=== PATIENT | female | born 1985 | race Caucasian/White ===

== ENCOUNTER 2016-11-16 11:42 | Emergency (ER) | payer OTHER, SELFPAY ==
[~2016-11-16 11:42] MED LIST: ABIL5TAB5 PO; EFFE150C PO; KLON0.5T PO; KLON1TAB PO; NAPR500T2 PO; OXYC-517 PO; PRIL20CA9 PO; PROP40TA PO; TOPA100T8 PO; TOPA25TA10 PO; TRAZ50TA4 PO; VENL1TAB35 PO; VENL225T PO; VENL37.598 PO; VENL75CA PO; VENL75CA47 PO
[2016-11-16 12:23] LABS: MEAN CORPUSCULAR HEMOGLOBIN 29.9 pg (27.0-33.0); MEAN CORPUSCULAR HGB CONC 33.9 g/dl (32.0-36.5); MEAN CORPUSCULAR VOLUME 88.3 fl (80.0-96.0); RED CELL DISTRIBUTION WIDTH 13.9 % (11.5-14.5)
[2016-11-16 12:32] LABS: CONTROL LINE HCG INT CTR LINE PRESENT
[2016-11-16 12:47] LABS: ALBUMIN 3.7 GM/DL (3.2-5.2); ALBUMIN/GLOBULIN RATIO 1.09 (1.00-1.93); ALKALINE PHOSPHATASE 75 U/L (45-117); ALT/SGPT 22 U/L (12-78); ANION GAP 11 MEQ/L (8-16); AST/SGOT 26 U/L (15-37); BILIRUBIN,DIRECT < 0.1 MG/DL (0.0-0.2); BILIRUBIN,TOTAL 0.4 MG/DL (0.2-1.0); BLOOD UREA NITROGEN 8 MG/DL (7-18); CALCIUM LEVEL 8.7 MG/DL (8.5-10.1); CARBON DIOXIDE LEVEL 25 MEQ/L (21-32); CHLORIDE LEVEL 105 MEQ/L (98-107); CREATININE FOR GFR 0.68 MG/DL (0.55-1.02); GLOMERULAR FILTRATION RATE > 60.0 (>60); GLUCOSE, FASTING 89 MG/DL (70-105); SODIUM LEVEL 141 MEQ/L (136-145); TOTAL PROTEIN 7.1 GM/DL (6.4-8.2)
[2016-11-16 13:31] LABS: AMPHETAMINES LEVEL URINE NEGATIVE (NEGATIVE); BENZODIAZEPINES URINE NEGATIVE (NEGATIVE); COCAINE METABOLITE URINE NEGATIVE (NEGATIVE); CONTROL LINE INT CTR LINE PRESENT; METHADONE URINE NEGATIVE (NEGATIVE); OPIATES URINE NEGATIVE (NEGATIVE); TRICYCLIC ANTIDEPRESS URINE NEGATIVE (NEGATIVE)
[2016-11-16] MEDS ORDERED: ACETAMINOPHEN TAB 650MG DOSE (2X325MG) As Ordered ONE (17:04)
--- NOTE | 2016-11-17 08:15 | ECGEPIP ---
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
--- NOTE | 2016-11-17 08:41 | EDDOCDS ---
Nurse's Notes [facility] Name: Radha Mcdowell Age: 31 yrs Sex: Female : 1985 Arrival Date: 11/16/2016 Time: 11:42 Bed OBSERVATION Private MD: Diagnosis: Major depressive disorder, recurrent;Suicidal ideations Presentation: 11/16 11:54 Presenting complaint: Patient states: states depressed x 1 week - has been thinking bc about cutting self. has not acted on plan. denies self - injury. denies HI. denies recent ETOH/street drug use. denies hallucinations. states has not taken any meds since September. Mental Health Triage Level: Level 2: The patient displays active suicidal ideations. The patient was brought to the ED for evaluation because of a legal pickup order. Adult Sepsis Screening: The patient does not have new or worsening altered mentation. Patient's respiratory rate is less than 22. Systolic blood pressure is greater than 100. Patient has a qSOFA score of 0- Negative Sepsis Screen. Suicide/Homicide risk assessment- The patient admits to and/or has been reported to be having suicidal ideations. The patient reports that he/she has not been admitted to an inpatient mental health facility in the last 30 days. The patient reports that he/she does not have a recent or current history of substance abuse. The patient reports that he/she has a prior history of suicide attempt and/or organized plan. The patient reports that he/she has not experienced a significant life altering event in the last 30 days. The patient reports that he/she has adequate social support. The patient reports he/she has significant chronic medical condition(s). Status: Patient is not a telephone order clerk room service or dependent. Transition of care: patient was not received from another setting of care. 11:54 Acuity: JASON Level 3 bcj 11:54 Method Of Arrival: Police Car bcj Triage Assessment: 12:00 General: Appears in no apparent distress, comfortable, Behavior is cooperative. Pain: bcj Denies pain. HIV screening NA for this visit Offered previously. Neurological: Level of Consciousness is awake, alert. 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 none - PSHx: Cholecystectomy (February 14, 2016); right acl reconstruction; - Social history: Smoking status: Patient states was never smoker of tobacco. No barriers to communication noted, The patient speaks fluent Kittitian. - Family history: Not pertinent. - : The pt / caregiver states he / she is not on anticoagulants. Home medication list is obtained from the patient. - Exposure Risk Screening:: None identified. Screenin:02 Screening information is obtained from the patient. Fall risk: No risks identified. bcj Assistance ADL's: requires no assistance with activities of daily living. Abuse/DV Screen: The patient / caregiver reports he/she is: not in a situation that causes fear, pain or injury. Nutritional screening: No deficits noted. Advance Directives: Currently, there is no health care proxy. home support is adequate. Assessment: 12:02 General: Appears in no apparent distress, comfortable, Behavior is cooperative. bcj 13:06 General: Appears in no apparent distress, comfortable, Behavior is cooperative. Pain: bcj Denies pain. Derm: Skin is pink, warm & dry. 17:51 General: Appears in no apparent distress, comfortable, Behavior is cooperative. Pain: bcj Location: head Pain currently is 5 out of 10 on a pain scale. Neurological: Level of Consciousness is awake, alert. Derm: Skin is pink, warm & dry. 19:11 General: Appears in no apparent distress, comfortable, Behavior is appropriate for age, rw1 cooperative, quiet. Pain: Denies pain. Neurological: Level of Consciousness is awake, alert, obeys commands, Oriented to person, place, time. Respiratory: Airway is patent Respiratory effort is even, unlabored. Derm: Skin is pink, warm & dry. normal. 20:10 Reassessment: Patient appears in no apparent distress at this time. resting quietly on rw1 stretcher, safety maintained will monitor.. 21:10 Reassessment: Patient appears in no apparent distress at this time. Patient denies pain rw1 at this time. resting quietly on stretcher, safety maintained will monitor.. 23:00 General: Appears in no apparent distress, comfortable, Behavior is appropriate for age, janelle cooperative. Pain: Denies pain. Neurological: Level of Consciousness is awake, alert, obeys commands, Oriented to person, place, time, Speech is normal. EENT: No deficits noted. Cardiovascular: No deficits noted. Respiratory: No deficits noted. Airway is patent Respiratory effort is even, unlabored, Respiratory pattern is regular, symmetrical. GI: No deficits noted. : No deficits noted. Derm: Skin is pink, warm & dry. 11/17 01:32 General: Appears in no apparent distress, comfortable, Behavior is resting quietly on rw1 stretcher, safety maintained. Respiratory: Airway is patent Respiratory effort is even, unlabored. Derm: Skin is pink, warm & dry. normal. 02:27 Reassessment: Patient appears in no apparent distress at this time. resting quietly on rw1 stretcher, safety maintained will monitor.. 03:27 Reassessment: Patient appears in no apparent distress at this time. resting quietly on rw1 stretcher, safety maintained will monitor.. 04:27 General: Appears in no apparent distress, comfortable, Behavior is resting quietly on rw1 stretcher, safety maintained. Respiratory: Airway is patent Respiratory effort is even, unlabored. Derm: Skin is pink, warm & dry. normal. 04:30 General: no change in general condition, no voiced complaints offered. resp easy. janelle security in attendance.. 05:28 Reassessment: Patient appears in no apparent distress at this time. resting quietly on rw1 stretcher, safety maintained will monitor.. 06:20 Reassessment: Patient appears in no apparent distress at this time. Patient denies pain rw1 at this time. resting quietly on stretcher, safety maintained will monitor.. 07:41 General: Report received from Brijesh Taylor LPN, presently asleep, scheduled for transfer [facility] to [facility] later this AM. 08:09 General: Report called to Julee Ohara RN at [facility], Awake and alert, calm dwg and cooperative, states still having ''occasional bad thoughts'' but does not elaborate. . 08:38 General: Appears in no apparent distress, comfortable, Behavior is cooperative. dwg General: Awake and alert, calm and cooperative, VSS, GEM's EMT's Sonny here to transfer to [facility].. Neurological: Level of Consciousness is awake, alert, Oriented to person, place, time. Respiratory: Airway is patent Respiratory effort is even, unlabored, Respiratory pattern is regular, symmetrical. Mental Health Eval: 11/16 16:44 Mental health consult is initiated at 16:15. Status: The patient is not a telephone order clerk room service or dependent. [facility] Behavioral Health: The patient is not an established patient of [facility] Behavioral Health. Referral Information: Evaluation referral is generated by a police agency: [employer] on . The patient was referred for evaluation because she phoned police, expressed SI & requested transport here. Subjective: The patients chief complaint is "I've been having bad thoughts, really bad thoughts". Delusions are denied. Patient's mood is depressed & hopeless. Hallucinations are denied. Patient states that she stopped attending outpatient treatment a few months ago, which is not atypical. She describes "Going in cycles", where she will attend all appointments & be compliant with her meds, only to abruptly stop everything. She says that this occurs about 2 times per year. She offers no explanation for this, denying that she either felt that treatment was not helping, or that she felt so well that she no longer needed it. She reports that this particular episode of depression has been worsening over the last 2 weeks, with thoughts of suicide for a couple of days. She says that the suicidal thoughts have intensified to the point where she believes that if being alone at home, she'd almost certainly make an attempt. She reports h/o attempts, including cutting & overdose. She was initially unable to identify any obvious stressors or triggers, however noted that she began a new job ("I hate it") a month ago, as well as planning to move from her aunt's home & into her own apartment. She concurred when it was pointed out that both are significant life changing events. At this time she is unable to guarantee her safety outside of the hospital. 16:59 Mental Health history: alcohol abuse, anxiety, depression, abusing prescription drugs. jl sleep disturbance, suicide attempt by cutting (05/2016) & overdose (10/2015) Mental Health Admissions: 05/2016, 09/2015 & 01/2015, all at [facility] Current Outpatient Mental Health Services: None. Current living environment is The patient currently lives with a family member. Patient presents to Emergency Department with the following symptoms within the past 2 weeks: anxiety, erratic appetite depressed mood, feelings of helplessness/hopelessness, non-compliance, poor concentration, sleep disturbance - erratic suicidal ideation with plan for cutting. pills. Substance abuse: Pt denies. Mental status exam: Patients appearance is alternative, Patient's behavior is cooperative, Speech is normal. Affect is restricted. Mood is depressed. Hallucinations are denied. Appetite is erratic Memory is good. Energy level is normal. Content of thought is normal. Thought process is intact. Cognitive level is oriented to person, place, time and situation Patient's insight is fair. Judgement is fair. Rapport with interviewer is good. Suicidal Ideation present with a plan to kill self by cutting. pills. Homicidal ideation is denied. 19:21 Disposition: Medically cleared for disposition by Sarai Borrero MD Psychiatric jl Consult is performed by phone with Dr Bahman Montilla MD The patient is to be transferred to an alternate facility with an available bed, as [facility] at capacity. [facility] Admission Criteria: The patient is experiencing suicidal ideation. The patient requires continuous observation and/or control to protect self, others or property. The patient's care requires a multi-modal treatment plan under close supervision and coordination due to the complexity and severity of the patient's symptoms. Legal Status: Patient's legal status will be [facility] Services admission: 9.37. DSM-V Differential Diagnosis: Major Depressive Disorder recurrent episode (F33.0) severe (F33.2). 21:30 Narrative: At this time there are no beds available for transfer. Patient to remain in ED, pending bed availability. She is aware of this plan. 22:15 Narrative: [facility] has advised that they have one bed available at this time. Chart to be faxed for review. 11/17 02:06 Narrative: EKG faxed per request. jfb 03:33 Narrative: PT is accepted to [facility]. Waiting for ETA from [facility]. 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 jfb Psych: 11/16 12:03 Mental Health Triage Level: Level 2: The patient displays active suicidal ideations. bc The patient was brought to the ED for evaluation because of a legal pickup order. Subjective: The patients chief complaint is has been thinking about hurting self x 1 week. Delusions are denied. Patient's mood is depressed, Hallucinations are denied. Objective: Patient is cooperative, Speech is soft, Affect is flat. Substance abuse: Pt denies Vital Signs: 12:00 BP 135 / 90; Pulse 85; Resp 16; Temp 99.0(O); Pulse Ox 96% on R/A; Weight 111.13 kg; bcj Height 5 ft. 3 in. (160.02 cm); Pain 0/10; 17:51 BP 127 / 64; Pulse 64; Resp 16; Temp 98(O); Pulse Ox 97% on R/A; Pain 5/10; bcj 21:10 BP 125 / 85; Pulse 70; Resp 16; Temp 96.9(O); Pulse Ox 96% on R/A; Pain 0/10; rw1 11/17 06:20 BP 121 / 76; Pulse 67; Resp 16; Temp 97.4(TE); Pulse Ox 98% on R/A; Pain 0/10; rw1 08:39 BP 134 / 74; Pulse 82; Resp 16; Temp 97.6(T); Pulse Ox 98% on R/A; dwg 11/16 12:00 Body Mass Index 43.40 (111.13 kg, 160.02 cm) [facility] Vitals: 11/16 12:00 Log In time N/A- police car arrival. [facility] ED Course: 11:45 Patient visited by Aguila Martinez. mm15 11:45 Patient moved to Waiting mm15 11:46 Patient moved to [facility] rn1 11:57 Triage Initiated bcj 12:00 Patient visited by Blair Cline. rn1 12:02 No apparent distress. Resting quietly. Awaiting ED physician evaluation. [facility] 12:02 The patient / caregiver is instructed regarding the plan of care and ED course. Patient j has correct armband on for positive identification. Placed in gown. Placed in psych safe attire. Bed in low position. Call light in reach. Security observing. 12:03 Patient visited by Reynaldo Neely RN. bcj 12:19 Patient visited by Blair Cline. rn1 12:31 Patient visited by Blair Cline. rn1 13:06 No apparent distress. Resting quietly. Awaiting ED physician evaluation. [facility] 13:06 Security observing. j 13:06 No IV's were initiated during this patient's visit. No procedures done that require bcj assistance. Labs drawn. (by ED staff). Sent per order to lab. 13:07 Patient visited by Reynaldo Neely RN. bcj 13:45 Patient visited by Jessica Black. lr2 14:01 Patient visited by Jessica Black. lr2 14:09 Sarai Borrero MD is Attending Physician. ml 14:10 Patient visited by Sarai Borrero MD. ml 14:16 Patient visited by Blair Cline. rn1 14:38 Patient visited by Blair Cline. rn1 14:57 Patient visited by Blair Cline. rn1 15:15 Patient visited by Blair Cline. rn1 15:15 Patient visited by Reynaldo Neely RN. bcj 15:19 Patient visited by Reynaldo Neely RN. bcj 15:30 Patient visited by Blair Cline. rn1 16:01 Patient visited by Blair Cline. rn1 16:09 [facility] Payment Agreement was scanned into [employer] and attached to record. zo 16:18 Patient visited by Blair Cline. rn1 16:34 Patient visited by Matt Linares PSA. jl 16:55 Patient visited by Blair Cline. rn1 17:00 Patient visited by Blair Cline. rn1 17:25 Patient visited by Blair Cline. rn1 17:34 Patient visited by Blair Cline. rn1 17:45 Patient visited by Blair Cline. rn1 17:51 No apparent distress. Resting quietly. Awaiting disposition. bcj 17:52 Patient visited by Reynaldo Neely RN. bcj 18:53 Patient visited by Blair Cline. rn1 19:14 Patient visited by Blair Cline. rn1 19:42 Patient visited by Misael Bennett. tr 19:46 Blair Taylor LPN is Primary Nurse. rw1 19:48 Patient moved to OBSERVATION janelle 20:00 Patient visited by Misael Bennett. tr 20:15 Patient visited by Misael Bennett. tr 20:29 Patient visited by Misael Bennett. tr 20:44 Patient visited by Blair Taylor LPN. rw1 21:01 Patient visited by Misael Bennett. tr 21:15 Patient visited by Misael Bennett. tr 21:45 Patient visited by Misael Bennett. tr 21:59 Patient visited by Misael Bennett. tr 22:42 Patient visited by Misael Bennett. tr 23:00 Patient has correct armband on for positive identification. Placed in psych safe janelle attire. Bed in low position. Call light in reach. 23:03 Patient visited by Misael Bennett. tr 23:19 Patient visited by Misael Bennett. tr 23:30 Patient visited by Misael Bennett. tr 23:42 Patient visited by Misael Bennett. tr 11/17 00:02 Patient visited by Misael Bennett. tr 00:18 Patient visited by Misael Bennett. tr 00:28 Patient visited by Misael Bennett. tr 00:31 Patient visited by Misael Bennett. tr 00:39 role handed off by Matt Linares PSA tr 00:57 Patient visited by Misael Bennett. tr 01:24 Patient visited by Blair Taylor LPN. rw1 01:39 Patient visited by Blair Taylor LPN. rw1 01:46 Patient visited by Diane Moreno. ajs 01:46 EKG done. (by ED staff). Reviewed by Daniel Holm DO. ajs 02:01 Patient visited by Misael Bennett. tr 02:32 Patient visited by Misael Bennett. tr 02:44 Patient visited by Misael Bennett. tr 02:58 Patient visited by Misael Bennett. tr 03:13 Patient visited by Misael Bennett. tr 03:27 Attending Physician role handed off by Sarai Borrero MD cs11 03:27 Daniel Holm DO is Attending Physician. cs11 03:31 Patient visited by Misael Bennett. tr 03:44 Patient visited by Misael Bennett. tr 04:03 Patient visited by Misael Bennett. tr 04:14 Patient visited by Misael Bennett. tr 04:23 E Legal paperwork was scanned into [employer] and attached to record. jmb 04:45 Patient visited by Misael Bennett. tr 05:01 Patient visited by Misael Bennett. tr 05:13 Patient visited by Misael Bennett. tr 05:46 Patient visited by Misael Bennett. tr 06:04 Patient visited by Misael Bennett. tr 06:16 Patient visited by Misael Bennett. tr 06:33 Patient visited by Misael Bennett. tr 06:46 Patient visited by Misael Bennett. tr 07:23 Psych Safety Check: Location: Psych Room. Visual Assessment: Cooperative. tmm1 07:43 Psych Safety Check: Location: Psych Room. Visual Assessment: Cooperative. tmm1 07:59 Psych Safety Check: Location: Psych Room. Visual Assessment: Cooperative. tmm1 08:21 Psych Safety Check: Location: Psych Room. Visual Assessment: Cooperative. tmm1 08:35 Psych Safety Check: Location: Psych Room. Visual Assessment: Cooperative. tmm1 08:40 EKG-ADULT Returned. EDMS 08:41 Patient visited by Gregory Helms RN. dwg Administered Medications: 11/16 17:21 Drug: Acetaminophen 650 mg [acetaminophen 325 mg tablet (2 tabs)] Route: PO; bcj 19:46 Follow up: Response: No Adverse Reaction rw1 Attachments: 11/17 04:23 E Legal paperwork jmb Order Results: Lab Order: Acetaminophen Level; SPEC'M 11/16/16 12:10 Test: ACETAMINOPHEN LEVEL; Value: < 2.0; Range: 10.0-30.0; Abnormal: Below low normal; Units: UG/ML; Status: F Lab Order: Basic Metabolic Profile; SPEC'M 11/16/16 12:10 Test: GLUCOSE, FASTING; Value: 89; Range: 70-105; Units: MG/DL; Status: F Test: BLOOD UREA NITROGEN; Value: 8; Range: 7-18; Units: MG/DL; Status: F Test: CREATININE FOR GFR; Value: 0.68; Range: 0.55-1.02; Units: MG/DL; Status: F Test: SODIUM LEVEL; Range: 136-145; Units: MEQ/L; Status: I Test: POTASSIUM SERUM; Range: 3.5-5.1; Units: MEQ/L; Status: I Test: CHLORIDE LEVEL; Range: 98-107; Units: MEQ/L; Status: I Test: CARBON DIOXIDE LEVEL; Range: 21-32; Units: MEQ/L; Status: I Test: ANION GAP; Range: 8-16; Units: MEQ/L; Status: I Test: CALCIUM LEVEL; Range: 8.5-10.1; Units: MG/DL; Status: I Test: GLOMERULAR FILTRATION RATE; Value: > 60.0; Range: >60; Status: F Test: SODIUM LEVEL; Value: 141; Range: 136-145; Units: MEQ/L; Status: F Test: POTASSIUM SERUM; Value: 4.0; Range: 3.5-5.1; Units: MEQ/L; Status: F Test: CHLORIDE LEVEL; Value: 105; Range: 98-107; Units: MEQ/L; Status: F Test: CARBON DIOXIDE LEVEL; Value: 25; Range: 21-32; Units: MEQ/L; Status: F Test: ANION GAP; Value: 11; Range: 8-16; Units: MEQ/L; Status: F Test: CALCIUM LEVEL; Value: 8.7; Range: 8.5-10.1; Units: MG/DL; Status: F Test Note: ; Units are mL/min/1.73 m2 Chronic Kidney Disease Staging per NKF: Stage I & II GFR >=60 Normal to Mildly Decreased Stage III GFR 30-59 Moderately Decreased Stage IV GFR 15-29 Severely Decreased Stage V GFR <15 Very Little GFR Left ESRD GFR <15 on TRAUMA PROGRAM MANAGER Lab Order: Complete Blood Count; SPEC'M 11/16/16 12:10 Test: WHITE BLOOD COUNT; Value: 5.0; Range: 4.0-10.0; Units: K/mm3; Status: F Test: RED BLOOD COUNT; Value: 4.58; Range: 4.00-5.40; Units: M/mm3; Status: F Test: HEMOGLOBIN; Value: 13.7; Range: 12.0-16.0; Units: g/dl; Status: F Test: HEMATOCRIT; Value: 40.4; Range: 36.0-47.0; Units: %; Status: F Test: MEAN CORPUSCULAR VOLUME; Value: 88.3; Range: 80.0-96.0; Units: fl; Status: F Test: MEAN CORPUSCULAR HEMOGLOBIN; Value: 29.9; Range: 27.0-33.0; Units: pg; Status: F Test: MEAN CORPUSCULAR HGB CONC; Value: 33.9; Range: 32.0-36.5; Units: g/dl; Status: F Test: RED CELL DISTRIBUTION WIDTH; Value: 13.9; Range: 11.5-14.5; Units: %; Status: F Test: PLATELET COUNT, AUTOMATED; Value: 204; Range: 150-450; Units: k/mm3; Status: F Lab Order: Drug Eval Toxicology ED Only; SPEC'M 11/16/16 12:10 Test: AMPHETAMINES LEVEL URINE; Value: NEGATIVE; Range: NEGATIVE; Status: F Test: BARBITURATES URINE; Value: NEGATIVE; Range: NEGATIVE; Status: F Test: BENZODIAZEPINES URINE; Value: NEGATIVE; Range: NEGATIVE; Status: F Test: CANNABINOIDS URINE; Value: NEGATIVE; Range: NEGATIVE; Status: F Test: COCAINE METABOLITE URINE; Value: NEGATIVE; Range: NEGATIVE; Status: F Test: METHADONE URINE; Value: NEGATIVE; Range: NEGATIVE; Status: F Test: OPIATES URINE; Value: NEGATIVE; Range: NEGATIVE; Status: F Test: TRICYCLIC ANTIDEPRESS URINE; Value: NEGATIVE; Range: NEGATIVE; Status: F Test Note: ; ALL PRESUMPTIVE POSITIVE FINDINGS ARE UNCONFIRMED NORMAL VALUES THRESHOLD IN NG/ML AMPHETAMINES 1000 METHAMPHETAMINES 1000 BARBITURATES 300 BENZODIAZEPINES 300 CANNABINOIDS (THC) 50 COCAINE METABOLITE 300 METHADONE 300 OPIATES 300 PHENCYCLIDINE 25 TRICYCLIC ANTIDEPRESSANTS 1000 RESULTS ARE FOR MEDICAL PURPOSES ONLY. ALL URINE SPECIMENS WILL BE SAVED FOR 3 DAYS. IF CONFIRMATION OF A PRESUMPTIVE POSTIVE SCREEN RESULT IS DESIRED, CALL CHEMISTRY ([phone]) AND REQUEST URINE TO BE SENT TO REFERENCE LAB. FOR A LIST OF CLOSELY RELATED COMPOUNDS PLEASE CALL THE LAB. Lab Order: Ethyl Alcohol (ethanol); SPEC'M 11/16/16 12:10 Test: ETHYL ALCOHOL (ETHANOL); Value: < 0.003; Range: 0.000-0.010; Units: %; Status: F Lab Order: HCG,Serum Qualitative; SPEC'M 11/16/16 12:10 Test: HCG, SERUM QUALITATIVE; Value: NEGATIVE; Range: NEGATIVE; Status: F Lab Order: Liver Profile; SPEC' 11/16/16 12:10 Test: AST/SGOT; Value: 26; Range: 15-37; Units: U/L; Status: F Test: ALT/SGPT; Value: 22; Range: 12-78; Units: U/L; Status: F Test: ALKALINE PHOSPHATASE; Value: 75; Range: 45-117; Units: U/L; Status: F Test: BILIRUBIN,TOTAL; Value: 0.4; Range: 0.2-1.0; Units: MG/DL; Status: F Test: BILIRUBIN,DIRECT; Value: < 0.1; Range: 0.0-0.2; Units: MG/DL; Status: F Test: TOTAL PROTEIN; Value: 7.1; Range: 6.4-8.2; Units: GM/DL; Status: F Test: ALBUMIN; Value: 3.7; Range: 3.2-5.2; Units: GM/DL; Status: F Test: ALBUMIN/GLOBULIN RATIO; Value: 1.09; Range: 1.00-1.93; Status: F Lab Order: Salicylate Level; SPEC'M 11/16/16 12:10 Test: SALICYLATE LEVEL; Value: < 1.7; Range: 5.0-30.0; Abnormal: Below low normal; Units: MG/DL; Status: F Lab Order: Thyroid Stimulating Hormone; SPEC'M 11/16/16 12:10 Test: THYROID STIMULATING HORMONE; Value: 1.040; Range: 0.358-3.740; Units: uIU/ML; Status: F Radiology Order: EKG-ADULT Test: EKG-ADULT REASON FOR EXAMINATION: psychiatric meds; Stationary ECG Study; [facility] - ED; ; Test Date: 2016-11-17; Pat Name: RADHA MCDOWELL Department:; Room: -; Gender: F Securities 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 cs11 08:40 Discharge Assessment: Patient awake, alert and oriented x 3. No cognitive and/or dwg functional deficits noted. Patient verbalized understanding of disposition instructions. patient administered narcotics - no. Transferred to [facility]. The following High Risk Discharge criteria are identified: None. Condition: good Condition: stable. No special radiology studies were completed. Property secured in given to EMS transport crew. 08:41 Patient left the ED. [facility] Signatures: Dispatcher [employer] EDRI Sarai Borrero MD MD ml Greene, Daniel, RN RN Reynaldo Banks, RN RN Andra Coronado, RN RN janelle Linares, Matt, PSA PSA jl Sabrina, Misael Taylor,Blair,INSPECTOR ALIGNING INSPECTOR ALIGNING rw1 Terrance, Zotariq Crow, Tori, PSA PSA jfb Diane Moreno Craig, DO cs11 McLear, Heidy, SENIOR INVESTIGATOR SENIOR INVESTIGATOR tmm1 MartinezAguila [id number] Dat Serrano,RENETTA Cline, Blair rn1 Jessica Black2 Corrections: (The following items were deleted from the chart) 11/16 11:58 11:54 Presenting complaint: Patient states: states depressed x 1 week - has been bcj thinking about cutting self. has not acted on plan. denies self - injury. denies HI. denies recent ETOH/street drug use. denies hallucinations. [facility] 15: 11:58 Home Meds: Klonopin 1 mg oral TbDL 1 tab 2 times per day [Inactive]; [facility] 15: 11:58 Home Meds: Effexor 225mg oral daily [Inactive]; [facility] : 11:58 Home Meds: omeprazole 20 mg oral cpDR 1 cap 2 times per day [Inactive]; [facility] : 11:58 Home Meds: Topamax 100 mg oral tab 1 tab daily [Inactive]; [facility] 15: 11:58 Home Meds: Abilify 2 mg oral tab 2 mg daily [Inactive]; [facility] MTDD
--- NOTE | 2016-11-17 08:41 | EDDOCDS ---
Physician Documentation [facility] Name: Susan Mcdowell Age: 31 yrs Sex: Female : 1985 Arrival Date: 11/16/2016 Time: 11:42 Bed OBSERVATION Private MD: Disposition: 11/17/16 03:36 Transfer ordered to [facility]. Diagnosis are Major depressive disorder, recurrent, Suicidal ideations. - Reason for transfer: Higher level of care. - Accepting physician is Dr Bernabe. - Condition is Stable. - Problem is an ongoing problem. - Symptoms have improved. Historical: - Allergies: no known allergies; - Home Meds: 1. none - PSHx: Cholecystectomy (February 14, 2016); right acl reconstruction; - Social history: Smoking status: Patient states was never smoker of tobacco. No barriers to communication noted, The patient speaks fluent Maltese. - Family history: Not pertinent. - : The pt / caregiver states he / she is not on anticoagulants. Home medication list is obtained from the patient. - Exposure Risk Screening:: None identified. HEALTH POLICY MANAGER: 11/16 12:00 LMP 11/02/2016 [facility] Vital Signs: 12:00 BP 135 / 90; Pulse 85; Resp 16; Temp 99.0(O); Pulse Ox 96% on R/A; Weight 111.13 kg / bcj 245 lbs; Height 5 ft. 3 in. (160.02 cm); Pain 0/10; 17:51 BP 127 / 64; Pulse 64; Resp 16; Temp 98(O); Pulse Ox 97% on R/A; Pain 5/10; bcj 21:10 BP 125 / 85; Pulse 70; Resp 16; Temp 96.9(O); Pulse Ox 96% on R/A; Pain 0/10; rw1 11/17 06:20 BP 121 / 76; Pulse 67; Resp 16; Temp 97.4(TE); Pulse Ox 98% on R/A; Pain 0/10; rw1 08:39 BP 134 / 74; Pulse 82; Resp 16; Temp 97.6(T); Pulse Ox 98% on R/A; dwg 11/16 12:00 Body Mass Index 43.40 (111.13 kg, 160.02 cm) [facility] MDM: 11/16 11:51 Consult PFS/PSA/Research Hydrologist ordered. ml 11:51 Consult PFS/PSA/Research Hydrologist: Patient's case requires discussion with on-call ml Psychiatrist ordered. 11:51 PSA/PFS to call Nursing Coding File Clerk, to enter patient data [place] if patient ml involuntarily admitted or transferred for SI or HI ordered. 11:51 Confirm accurate psychiatric medication list and times of last dosage ordered. ml 11:51 Detain Pt Until Medically/PFS Cleared ordered. ml 11:52 Acetaminophen Level Ordered. EDMS 11:52 Basic Metabolic Profile Ordered. EDMS 11:52 Complete Blood Count Ordered. EDMS 11:52 Drug Eval Toxicology ED Only Ordered. EDMS 11:52 Ethyl Alcohol (ethanol) Ordered. EDMS 11:52 HCG,Serum Qualitative Ordered. EDMS 11:53 Liver Profile Ordered. EDMS 11:53 Salicylate Level Ordered. EDMS 11:53 Thyroid Stimulating Hormone Ordered. EDMS 14:18 Acetaminophen Tablet 650 mg PO once ordered. ml 14:18 Misc. Nursing Order ordered. ml 14:18 Acetaminophen Level Reviewed. ml 14:18 Salicylate Level Reviewed. ml 14:18 Basic Metabolic Profile Reviewed. ml 14:18 Complete Blood Count Reviewed. ml 14:18 Drug Eval Toxicology ED Only Reviewed. ml 14:18 Ethyl Alcohol (ethanol) Reviewed. ml 14:18 HCG,Serum Qualitative Reviewed. ml 14:18 Liver Profile Reviewed. ml 14:18 Thyroid Stimulating Hormone Reviewed. ml 16:06 Financial registration complete. zo 16:09 [facility] Payment Agreement was scanned into [employer] and attached to record. zo 17:07 REGULAR DIET PLASTIC PERALTA+DIET ordered. EDMS 19:47 Consult PFS/PSA/Research Hydrologist complete. jl 19:47 Consult PFS/PSA/Research Hydrologist: Patient's case requires discussion with on-call jl Psychiatrist complete. 19:47 PSA/PFS to call Nursing Coding File Clerk, to enter [place] data [place] if patient jl involuntarily admitted or transferred for SI or HI complete. 11/17 00:04 ECG WITH READING ER PHYS+CARDIAG ordered. EDMS 04:23 [facility] Legal paperwork was scanned into [employer] and attached to record. jmb 04:57 REGULAR DIET PLASTIC PERALTA+DIET ordered. EDMS Administered Medications: 11/16 17:21 Drug: Acetaminophen 650 mg [acetaminophen 325 mg tablet (2 tabs)] Route: PO; bcj 19:46 Follow up: Response: No Adverse Reaction rw1 Signatures: Dispatcher [employer] aSrai Oviedo MD MD ml Greene, Daniel, RN RN Reynaldo Banks RN RN [facility] Matt Linares, MAGNO PSA Lisa Contreras Craig, DO DO cs11 Dat Serrano,RN RN Blair Schmitt LPN rw1 The chart was reviewed and I authenticate all verbal orders and agree with the evaluation and treatment provided.Corrections: (The following items were deleted from the chart) 15: 11:58 Home Meds: Klonopin 1 mg oral TbDL 1 tab 2 times per day [Inactive]; [facility] 15 11:58 Home Meds: Effexor 225mg oral daily [Inactive]; [facility] 15: 11:58 Home Meds: omeprazole 20 mg oral cpDR 1 cap 2 times per day [Inactive]; [facility] 15: 11:58 Home Meds: Topamax 100 mg oral tab 1 tab daily [Inactive]; [facility] 15: 11:58 Home Meds: Abilify 2 mg oral tab 2 mg daily [Inactive]; [facility] Attachments: 16:09 [facility] Payment Agreement zo MTDD
--- NOTE | 2016-11-19 09:41 | EDDOCDS ---
Physician Documentation [facility] Name: Susan Mcdowell Age: 31 yrs Sex: Female : 1985 Arrival Date: 11/16/2016 Time: 11:42 Bed OBSERVATION Private MD: Disposition: 11/17/16 03:36 Transfer ordered to [facility]. Diagnosis are Major depressive disorder, recurrent, Suicidal ideations. - Reason for transfer: Higher level of care. - Accepting physician is Dr Bernabe. - Condition is Stable. - Problem is an ongoing problem. - Symptoms have improved. Historical: - Allergies: no known allergies; - Home Meds: 1. none - PSHx: Cholecystectomy (February 14, 2016); right acl reconstruction; - Social history: Smoking status: Patient states was never smoker of tobacco. No barriers to communication noted, The patient speaks fluent Japanese. - Family history: Not pertinent. - : The pt / caregiver states he / she is not on anticoagulants. Home medication list is obtained from the patient. - Exposure Risk Screening:: None identified. RAG SHREDDER: 11/16 12:00 LMP 11/02/2016 [facility] Vital Signs: 12:00 BP 135 / 90; Pulse 85; Resp 16; Temp 99.0(O); Pulse Ox 96% on R/A; Weight 111.13 kg / bcj 245 lbs; Height 5 ft. 3 in. (160.02 cm); Pain 0/10; 17:51 BP 127 / 64; Pulse 64; Resp 16; Temp 98(O); Pulse Ox 97% on R/A; Pain 5/10; bcj 21:10 BP 125 / 85; Pulse 70; Resp 16; Temp 96.9(O); Pulse Ox 96% on R/A; Pain 0/10; rw1 11/17 06:20 BP 121 / 76; Pulse 67; Resp 16; Temp 97.4(TE); Pulse Ox 98% on R/A; Pain 0/10; rw1 08:39 BP 134 / 74; Pulse 82; Resp 16; Temp 97.6(T); Pulse Ox 98% on R/A; dwg 11/16 12:00 Body Mass Index 43.40 (111.13 kg, 160.02 cm) [facility] MDM: 11/16 11:51 Consult PFS/PSA/Hospital Librarian ordered. ml 11:51 Consult PFS/PSA/Hospital Librarian: Patient's case requires discussion with on-call ml Psychiatrist ordered. 11:51 PSA/PFS to call Nursing Stevedoring Supervisor, to [place] if patient ml involuntarily admitted or transferred for SI or HI ordered. 11:51 Confirm accurate psychiatric medication list and times of last dosage ordered. ml 11:51 Detain Pt Until Medically/PFS Cleared ordered. ml 11:52 Acetaminophen Level Ordered. EDMS 11:52 Basic Metabolic Profile Ordered. EDMS 11:52 Complete Blood Count Ordered. EDMS 11:52 Drug Eval Toxicology ED Only Ordered. EDMS 11:52 Ethyl Alcohol (ethanol) Ordered. EDMS 11:52 HCG,Serum Qualitative Ordered. EDMS 11:53 Liver Profile Ordered. EDMS 11:53 Salicylate Level Ordered. EDMS 11:53 Thyroid Stimulating Hormone Ordered. EDMS 14:18 Acetaminophen Tablet 650 mg PO once ordered. ml 14:18 Misc. Nursing Order ordered. ml 14:18 Acetaminophen Level Reviewed. ml 14:18 Salicylate Level Reviewed. ml 14:18 Basic Metabolic Profile Reviewed. ml 14:18 Complete Blood Count Reviewed. ml 14:18 Drug Eval Toxicology ED Only Reviewed. ml 14:18 Ethyl Alcohol (ethanol) Reviewed. ml 14:18 HCG,Serum Qualitative Reviewed. ml 14:18 Liver Profile Reviewed. ml 14:18 Thyroid Stimulating Hormone Reviewed. ml 16:06 Financial registration complete. zo 16:09 [facility] Payment Agreement was scanned into [employer] and attached to record. zo 17:07 REGULAR DIET PLASTIC PERALTA+DIET ordered. EDMS 19:47 Consult PFS/PSA/Hospital Librarian complete. jl 19:47 Consult PFS/PSA/Hospital Librarian: Patient's case requires discussion with on-call jl Psychiatrist complete. 19:47 PSA/PFS to call Nursing Stevedoring Supervisor, to [place] if patient jl involuntarily admitted or transferred for SI or HI complete. 11/17 00:04 ECG WITH READING ER PHYS+CARDIAG ordered. EDMS 04:23 [facility] Legal paperwork was scanned into [employer] and attached to record. jmb 04:57 REGULAR DIET PLASTIC PERALTA+DIET ordered. EDMS 15:20 T-Sheet-- Draft Copy was scanned into [employer] and attached to record. gb 11/18 14:41 ECG/EKG was scanned into [employer] and attached to record. Administered Medications: 11/16 17:21 Drug: Acetaminophen 650 mg [acetaminophen 325 mg tablet (2 tabs)] Route: PO; [facility] 19:46 Follow up: Response: No Adverse Reaction rw1 Signatures: Dispatcher [employer] EDNC Sarai Borrero MD MD ml Greene, Daniel RN RN Reynaldo Banks RN RN [facility] Matt Linares, PSA PSA jl Mary Shin, Reg Reg gb Terrance, Daniel Real, DO cs11 Dat SerranoRN RN Blair Schmitt LPN rw1 The chart was reviewed and I authenticate all verbal orders and agree with the evaluation and treatment provided.Corrections: (The following items were deleted from the chart) 15: 11:58 Home Meds: Klonopin 1 mg oral TbDL 1 tab 2 times per day [Inactive]; [facility] 15: 11:58 Home Meds: Effexor 225mg oral daily [Inactive]; [facility] 15:19 11:58 Home Meds: omeprazole 20 mg oral cpDR 1 cap 2 times per day [Inactive]; [facility] 15:19 11:58 Home Meds: Topamax 100 mg oral tab 1 tab daily [Inactive]; [facility] 15:19 11:58 Home Meds: Abilify 2 mg oral tab 2 mg daily [Inactive]; [facility] Attachments: 16:09 [facility] Payment Agreement zo 15:20 T-Sheet-- Draft Copy 11/18 14:41 ECG/EKG Chart Complete MTDD
--- NOTE | 2016-11-19 09:42 | EDDOCDS ---
Physician Documentation [facility] Name: Susan Mcdowell Age: 31 yrs Sex: Female : 1985 Arrival Date: 11/16/2016 Time: 11:42 Bed OBSERVATION Private MD: Disposition: 11/17/16 03:36 Transfer ordered to [facility]. Diagnosis are Major depressive disorder, recurrent, Suicidal ideations. - Reason for transfer: Higher level of care. - Accepting physician is Dr Bernabe. - Condition is Stable. - Problem is an ongoing problem. - Symptoms have improved. Historical: - Allergies: no known allergies; - Home Meds: 1. none - PSHx: Cholecystectomy (February 14, 2016); right acl reconstruction; - Social history: Smoking status: Patient states was never smoker of tobacco. No barriers to communication noted, The patient speaks fluent Tajik. - Family history: Not pertinent. - : The pt / caregiver states he / she is not on anticoagulants. Home medication list is obtained from the patient. - Exposure Risk Screening:: None identified. BROKE MAN: 11/16 12:00 LMP 11/02/2016 [facility] Vital Signs: 12:00 BP 135 / 90; Pulse 85; Resp 16; Temp 99.0(O); Pulse Ox 96% on R/A; Weight 111.13 kg / bcj 245 lbs; Height 5 ft. 3 in. (160.02 cm); Pain 0/10; 17:51 BP 127 / 64; Pulse 64; Resp 16; Temp 98(O); Pulse Ox 97% on R/A; Pain 5/10; bcj 21:10 BP 125 / 85; Pulse 70; Resp 16; Temp 96.9(O); Pulse Ox 96% on R/A; Pain 0/10; rw1 11/17 06:20 BP 121 / 76; Pulse 67; Resp 16; Temp 97.4(TE); Pulse Ox 98% on R/A; Pain 0/10; rw1 08:39 BP 134 / 74; Pulse 82; Resp 16; Temp 97.6(T); Pulse Ox 98% on R/A; dwg 11/16 12:00 Body Mass Index 43.40 (111.13 kg, 160.02 cm) [facility] MDM: 11/16 11:51 Consult PFS/PSA/Paper Hanger ordered. ml 11:51 Consult PFS/PSA/Paper Hanger: Patient's case requires discussion with on-call ml Psychiatrist ordered. 11:51 PSA/PFS to call Nursing Pipe Organ Mechanic Apprentice, to enter [place] if patient ml involuntarily admitted or transferred for SI or HI ordered. 11:51 Confirm accurate psychiatric medication list and times of last dosage ordered. ml 11:51 Detain Pt Until Medically/PFS Cleared ordered. ml 11:52 Acetaminophen Level Ordered. EDMS 11:52 Basic Metabolic Profile Ordered. EDMS 11:52 Complete Blood Count Ordered. EDMS 11:52 Drug Eval Toxicology ED Only Ordered. EDMS 11:52 Ethyl Alcohol (ethanol) Ordered. EDMS 11:52 HCG,Serum Qualitative Ordered. EDMS 11:53 Liver Profile Ordered. EDMS 11:53 Salicylate Level Ordered. EDMS 11:53 Thyroid Stimulating Hormone Ordered. EDMS 14:18 Acetaminophen Tablet 650 mg PO once ordered. ml 14:18 Misc. Nursing Order ordered. ml 14:18 Acetaminophen Level Reviewed. ml 14:18 Salicylate Level Reviewed. ml 14:18 Basic Metabolic Profile Reviewed. ml 14:18 Complete Blood Count Reviewed. ml 14:18 Drug Eval Toxicology ED Only Reviewed. ml 14:18 Ethyl Alcohol (ethanol) Reviewed. ml 14:18 HCG,Serum Qualitative Reviewed. ml 14:18 Liver Profile Reviewed. ml 14:18 Thyroid Stimulating Hormone Reviewed. ml 16:06 Financial registration complete. zo 16:09 [facility] Payment Agreement was scanned into [employer] and attached to record. zo 17:07 REGULAR DIET PLASTIC PERALTA+DIET ordered. EDMS 19:47 Consult PFS/PSA/Paper Hanger complete. jl 19:47 Consult PFS/PSA/Paper Hanger: Patient's case requires discussion with on-call jl Psychiatrist complete. 19:47 PSA/PFS to call Nursing Pipe Organ Mechanic Apprentice, to [place] if patient jl involuntarily admitted or transferred for SI or HI complete. 11/17 00:04 ECG WITH READING ER PHYS+CARDIAG ordered. EDMS 04:23 [facility] Legal paperwork was scanned into [employer] and attached to record. jmb 04:57 REGULAR DIET PLASTIC PERALTA+DIET ordered. EDMS 15:20 T-Sheet-- Draft Copy was scanned into [employer] and attached to record. gb 11/18 14:41 ECG/EKG was scanned into [employer] and attached to record. Administered Medications: 11/16 17:21 Drug: Acetaminophen 650 mg [acetaminophen 325 mg tablet (2 tabs)] Route: PO; [facility] 19:46 Follow up: Response: No Adverse Reaction rw1 Signatures: Dispatcher [employer] EDWA Sarai Borrero MD MD ml Greene, Daniel RN RN Reynaldo Banks RN RN [facility] Matt Linares, PSA PSA jl Mary Shin, Reg Reg gb Terrance, Daniel Real, DO cs11 Dat SerranoRN RN Blair Schmitt LPN rw1 The chart was reviewed and I authenticate all verbal orders and agree with the evaluation and treatment provided.Corrections: (The following items were deleted from the chart) 15: 11:58 Home Meds: Klonopin 1 mg oral TbDL 1 tab 2 times per day [Inactive]; [facility] 15: 11:58 Home Meds: Effexor 225mg oral daily [Inactive]; [facility] 15:19 11:58 Home Meds: omeprazole 20 mg oral cpDR 1 cap 2 times per day [Inactive]; [facility] 15:19 11:58 Home Meds: Topamax 100 mg oral tab 1 tab daily [Inactive]; [facility] 15:19 11:58 Home Meds: Abilify 2 mg oral tab 2 mg daily [Inactive]; [facility] Attachments: 16:09 [facility] Payment Agreement zo 15:20 T-Sheet-- Draft Copy 11/18 14:41 ECG/EKG Chart Complete MTDD
--- NOTE | 2016-11-19 09:42 | EDDOCDS ---
Nurse's Notes [facility] Name: Radha Mcdowell Age: 31 yrs Sex: Female : 1985 Arrival Date: 11/16/2016 Time: 11:42 Bed OBSERVATION Private MD: Diagnosis: Major depressive disorder, recurrent;Suicidal ideations Presentation: 11/16 11:54 Presenting complaint: Patient states: states depressed x 1 week - has been thinking bc about cutting self. has not acted on plan. denies self - injury. denies HI. denies recent ETOH/street drug use. denies hallucinations. states has not taken any meds since September. Mental Health Triage Level: Level 2: The patient displays active suicidal ideations. The patient was brought to the ED for evaluation because of a legal pickup order. Adult Sepsis Screening: The patient does not have new or worsening altered mentation. Patient's respiratory rate is less than 22. Systolic blood pressure is greater than 100. Patient has a qSOFA score of 0- Negative Sepsis Screen. Suicide/Homicide risk assessment- The patient admits to and/or has been reported to be having suicidal ideations. The patient reports that he/she has not been admitted to an inpatient mental health facility in the last 30 days. The patient reports that he/she does not have a recent or current history of substance abuse. The patient reports that he/she has a prior history of suicide attempt and/or organized plan. The patient reports that he/she has not experienced a significant life altering event in the last 30 days. The patient reports that he/she has adequate social support. The patient reports he/she has significant chronic medical condition(s). 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 Transition of care: patient was not received from another setting of care. 11:54 Acuity: JASON Level 3 bcj 11:54 Method Of Arrival: Police Car bcj Triage Assessment: 12:00 General: Appears in no apparent distress, comfortable, Behavior is cooperative. Pain: bcj Denies pain. HIV screening NA for this visit Offered previously. Neurological: Level of Consciousness is awake, alert. MATERIAL PROCESSOR: 12:00 LMP 11/02/2016 bcj Historical: - Allergies: no known allergies; - Home Meds: 1. none - PSHx: Cholecystectomy (February 14, 2016); right acl reconstruction; - Social history: Smoking status: Patient states was never smoker of tobacco. No barriers to communication noted, The patient speaks fluent Anguillan. - Family history: Not pertinent. - : The pt / caregiver states he / she is not on anticoagulants. Home medication list is obtained from the patient. - Exposure Risk Screening:: None identified. Screenin:02 Screening information is obtained from the patient. Fall risk: No risks identified. bcj Assistance ADL's: requires no assistance with activities of daily living. Abuse/DV Screen: The patient / caregiver reports he/she is: not in a situation that causes fear, pain or injury. Nutritional screening: No deficits noted. Advance Directives: Currently, there is no health care proxy. home support is adequate. Assessment: 12:02 General: Appears in no apparent distress, comfortable, Behavior is cooperative. bcj 13:06 General: Appears in no apparent distress, comfortable, Behavior is cooperative. Pain: bcj Denies pain. Derm: Skin is pink, warm & dry. 17:51 General: Appears in no apparent distress, comfortable, Behavior is cooperative. Pain: bcj Location: head Pain currently is 5 out of 10 on a pain scale. Neurological: Level of Consciousness is awake, alert. Derm: Skin is pink, warm & dry. 19:11 General: Appears in no apparent distress, comfortable, Behavior is appropriate for age, rw1 cooperative, quiet. Pain: Denies pain. Neurological: Level of Consciousness is awake, alert, obeys commands, Oriented to person, place, time. Respiratory: Airway is patent Respiratory effort is even, unlabored. Derm: Skin is pink, warm & dry. normal. 20:10 Reassessment: Patient appears in no apparent distress at this time. resting quietly on rw1 stretcher, safety maintained will monitor.. 21:10 Reassessment: Patient appears in no apparent distress at this time. Patient denies pain rw1 at this time. resting quietly on stretcher, safety maintained will monitor.. 23:00 General: Appears in no apparent distress, comfortable, Behavior is appropriate for age, janelle cooperative. Pain: Denies pain. Neurological: Level of Consciousness is awake, alert, obeys commands, Oriented to person, place, time, Speech is normal. EENT: No deficits noted. Cardiovascular: No deficits noted. Respiratory: No deficits noted. Airway is patent Respiratory effort is even, unlabored, Respiratory pattern is regular, symmetrical. GI: No deficits noted. : No deficits noted. Derm: Skin is pink, warm & dry. 11/17 01:32 General: Appears in no apparent distress, comfortable, Behavior is resting quietly on rw1 stretcher, safety maintained. Respiratory: Airway is patent Respiratory effort is even, unlabored. Derm: Skin is pink, warm & dry. normal. 02:27 Reassessment: Patient appears in no apparent distress at this time. resting quietly on rw1 stretcher, safety maintained will monitor.. 03:27 Reassessment: Patient appears in no apparent distress at this time. resting quietly on rw1 stretcher, safety maintained will monitor.. 04:27 General: Appears in no apparent distress, comfortable, Behavior is resting quietly on rw1 stretcher, safety maintained. Respiratory: Airway is patent Respiratory effort is even, unlabored. Derm: Skin is pink, warm & dry. normal. 04:30 General: no change in general condition, no voiced complaints offered. resp easy. janelle security in attendance.. 05:28 Reassessment: Patient appears in no apparent distress at this time. resting quietly on rw1 stretcher, safety maintained will monitor.. 06:20 Reassessment: Patient appears in no apparent distress at this time. Patient denies pain rw1 at this time. resting quietly on stretcher, safety maintained will monitor.. 07:41 General: Report received from Brijesh Taylor LPN, presently asleep, scheduled for transfer [facility] to [facility] later this AM. 08:09 General: Report called to Julee Ohara RN at [facility], Awake and alert, calm dwg and cooperative, states still having ''occasional bad thoughts'' but does not elaborate. . 08:38 General: Appears in no apparent distress, comfortable, Behavior is cooperative. dwg General: Awake and alert, calm and cooperative, VSS, GEM's EMT's Sonny here to transfer to [facility].. Neurological: Level of Consciousness is awake, alert, Oriented to person, place, time. Respiratory: Airway is patent Respiratory effort is even, unlabored, Respiratory pattern is regular, symmetrical. Mental Health Eval: 11/16 16:44 Mental health consult is initiated at 16:15. Status: The patient is not a maintenance service supervisor or dependent. [facility] Behavioral Health: The patient is not an established patient of [facility] Behavioral Health. Referral Information: Evaluation referral is generated by a police agency: [employer] on . The patient was referred for evaluation because she phoned police, expressed SI & requested transport here. Subjective: The patients chief complaint is "I've been having bad thoughts, really bad thoughts". Delusions are denied. Patient's mood is depressed & hopeless. Hallucinations are denied. Patient states that she stopped attending outpatient treatment a few months ago, which is not atypical. She describes "Going in cycles", where she will attend all appointments & be compliant with her meds, only to abruptly stop everything. She says that this occurs about 2 times per year. She offers no explanation for this, denying that she either felt that treatment was not helping, or that she felt so well that she no longer needed it. She reports that this particular episode of depression has been worsening over the last 2 weeks, with thoughts of suicide for a couple of days. She says that the suicidal thoughts have intensified to the point where she believes that if being alone at home, she'd almost certainly make an attempt. She reports h/o attempts, including cutting & overdose. She was initially unable to identify any obvious stressors or triggers, however noted that she began a new job ("I hate it") a month ago, as well as planning to move from her aunt's home & into her own apartment. She concurred when it was pointed out that both are significant life changing events. At this time she is unable to guarantee her safety outside of the hospital. 16:59 Mental Health history: alcohol abuse, anxiety, depression, abusing prescription drugs. jl sleep disturbance, suicide attempt by cutting (05/2016) & overdose (10/2015) Mental Health Admissions: 05/2016, 09/2015 & 01/2015, all at [facility] Current Outpatient Mental Health Services: None. Current living environment is The patient currently lives with a family member. Patient presents to Emergency Department with the following symptoms within the past 2 weeks: anxiety, erratic appetite depressed mood, feelings of helplessness/hopelessness, non-compliance, poor concentration, sleep disturbance - erratic suicidal ideation with plan for cutting. pills. Substance abuse: Pt denies. Mental status exam: Patients appearance is alternative, Patient's behavior is cooperative, Speech is normal. Affect is restricted. Mood is depressed. Hallucinations are denied. Appetite is erratic Memory is good. Energy level is normal. Content of thought is normal. Thought process is intact. Cognitive level is oriented to person, place, time and situation Patient's insight is fair. Judgement is fair. Rapport with interviewer is good. Suicidal Ideation present with a plan to kill self by cutting. pills. Homicidal ideation is denied. 19:21 Disposition: Medically cleared for disposition by Sarai Borrero MD Psychiatric jl Consult is performed by phone with Dr Bahman Montilla MD The patient is to be transferred to an alternate facility with an available bed, as [facility] at capacity. [facility] Admission Criteria: The patient is experiencing suicidal ideation. The patient requires continuous observation and/or control to protect self, others or property. The patient's care requires a multi-modal treatment plan under close supervision and coordination due to the complexity and severity of the patient's symptoms. Legal Status: Patient's legal status will be [facility] Services admission: 9.37. DSM-V Differential Diagnosis: Major Depressive Disorder recurrent episode (F33.0) severe (F33.2). 21:30 Narrative: At this time there are no beds available for transfer. Patient to remain in ED, pending bed availability. She is aware of this plan. 22:15 Narrative: [facility] has advised that they have one bed available at this time. Chart to be faxed for review. 11/17 02:06 Narrative: EKG faxed per request. jfb 03:33 Narrative: PT is accepted to [facility]. Waiting for ETA from [facility]. jfb 04:18 Narrative: [facility] to waste picker at 8:30 am. jfb Psych: 11/16 12:03 Mental Health Triage Level: Level 2: The patient displays active suicidal ideations. bc The patient was brought to the ED for evaluation because of a legal pickup order. Subjective: The patients chief complaint is has been thinking about hurting self x 1 week. Delusions are denied. Patient's mood is depressed, Hallucinations are denied. Objective: Patient is cooperative, Speech is soft, Affect is flat. Substance abuse: Pt denies Vital Signs: 12:00 BP 135 / 90; Pulse 85; Resp 16; Temp 99.0(O); Pulse Ox 96% on R/A; Weight 111.13 kg; bcj Height 5 ft. 3 in. (160.02 cm); Pain 0/10; 17:51 BP 127 / 64; Pulse 64; Resp 16; Temp 98(O); Pulse Ox 97% on R/A; Pain 5/10; bcj 21:10 BP 125 / 85; Pulse 70; Resp 16; Temp 96.9(O); Pulse Ox 96% on R/A; Pain 0/10; rw1 11/17 06:20 BP 121 / 76; Pulse 67; Resp 16; Temp 97.4(TE); Pulse Ox 98% on R/A; Pain 0/10; rw1 08:39 BP 134 / 74; Pulse 82; Resp 16; Temp 97.6(T); Pulse Ox 98% on R/A; dwg 11/16 12:00 Body Mass Index 43.40 (111.13 kg, 160.02 cm) [facility] Vitals: 11/16 12:00 Log In time N/A- police car arrival. [facility] ED Course: 11:45 Patient visited by Aguila Martinez. mm15 11:45 Patient moved to Waiting mm15 11:46 Patient moved to [facility] rn1 11:57 Triage Initiated bcj 12:00 Patient visited by Blair Cline. rn1 12:02 No apparent distress. Resting quietly. Awaiting ED physician evaluation. [facility] 12:02 The patient / caregiver is instructed regarding the plan of care and ED course. Patient j has correct armband on for positive identification. Placed in gown. Placed in psych safe attire. Bed in low position. Call light in reach. Security observing. 12:03 Patient visited by Reynaldo Neely RN. bcj 12:19 Patient visited by Blair Cline. rn1 12:31 Patient visited by Blair Cline. rn1 13:06 No apparent distress. Resting quietly. Awaiting ED physician evaluation. [facility] 13:06 Security observing. j 13:06 No IV's were initiated during this patient's visit. No procedures done that require bcj assistance. Labs drawn. (by ED staff). Sent per order to lab. 13:07 Patient visited by Reynaldo Neely RN. bcj 13:45 Patient visited by Jessica Black. lr2 14:01 Patient visited by Jessica Black. lr2 14:09 Sarai Borrero MD is Attending Physician. ml 14:10 Patient visited by Sarai Borrero MD. ml 14:16 Patient visited by Blair Cline. rn1 14:38 Patient visited by Blair Cline. rn1 14:57 Patient visited by Blair Cline. rn1 15:15 Patient visited by Blair Cline. rn1 15:15 Patient visited by Reynaldo Neely RN. bcj 15:19 Patient visited by Reynaldo Neely RN. bcj 15:30 Patient visited by Blair Cline. rn1 16:01 Patient visited by Blair Cline. rn1 16:09 [facility] Payment Agreement was scanned into [employer] and attached to record. zo 16:18 Patient visited by Blair Cline. rn1 16:34 Patient visited by Matt Linares PSA. jl 16:55 Patient visited by Blair Cilne. rn1 17:00 Patient visited by Blair Cline. rn1 17:25 Patient visited by Blair Cline. rn1 17:34 Patient visited by Blair Cline. rn1 17:45 Patient visited by Blair Cline. rn1 17:51 No apparent distress. Resting quietly. Awaiting disposition. bcj 17:52 Patient visited by Reynaldo Neely RN. bcj 18:53 Patient visited by Blair Cline. rn1 19:14 Patient visited by Blair Cline. rn1 19:42 Patient visited by Misael Bennett. tr 19:46 Blair Taylor LPN is Primary Nurse. rw1 19:48 Patient moved to OBSERVATION janelle 20:00 Patient visited by Misael Bennett. tr 20:15 Patient visited by Misael Bennett. tr 20:29 Patient visited by Misael Bennett. tr 20:44 Patient visited by Blair Taylor LPN. rw1 21:01 Patient visited by Misael Bennett. tr 21:15 Patient visited by Misael Bennett. tr 21:45 Patient visited by Misael Bennett. tr 21:59 Patient visited by Misael Bennett. tr 22:42 Patient visited by Misael Bennett. tr 23:00 Patient has correct armband on for positive identification. Placed in psych safe janelle attire. Bed in low position. Call light in reach. 23:03 Patient visited by Misael Bennett. tr 23:19 Patient visited by Misael Bennett. tr 23:30 Patient visited by Misael Bennett. tr 23:42 Patient visited by Misael Bennett. tr 11/17 00:02 Patient visited by Misael Bennett. tr 00:18 Patient visited by Misael Bennett. tr 00:28 Patient visited by Misael Bennett. tr 00:31 Patient visited by Misael Bennett. tr 00:39 role handed off by Matt Linares PSA tr 00:57 Patient visited by Misael Bennett. tr 01:24 Patient visited by Blair Taylor LPN. rw1 01:39 Patient visited by Blair Taylor LPN. rw1 01:46 Patient visited by Diane Moreno. ajs 01:46 EKG done. (by ED staff). Reviewed by Daniel Holm DO. ajs 02:01 Patient visited by Misael Bennett. tr 02:32 Patient visited by Misael Bennett. tr 02:44 Patient visited by Misael Bennett. tr 02:58 Patient visited by Misael Bennett. tr 03:13 Patient visited by Misael Bennett. tr 03:27 Attending Physician role handed off by Sarai Borrero MD cs11 03:27 Daniel Holm DO is Attending Physician. cs11 03:31 Patient visited by Misael Bennett. tr 03:44 Patient visited by Misael Bennett. tr 04:03 Patient visited by Misael Bennett. tr 04:14 Patient visited by Misael Bennett. tr 04:23 E Legal paperwork was scanned into [employer] and attached to record. jmb 04:45 Patient visited by Misael Bennett. tr 05:01 Patient visited by Misael Bennett. tr 05:13 Patient visited by Misael Bennett. tr 05:46 Patient visited by Misael Bennett. tr 06:04 Patient visited by Misael Bennett. tr 06:16 Patient visited by Misael Bennett. tr 06:33 Patient visited by Misael Bennett. tr 06:46 Patient visited by Misael Bennett. tr 07:23 Psych Safety Check: Location: Psych Room. Visual Assessment: Cooperative. tmm1 07:43 Psych Safety Check: Location: Psych Room. Visual Assessment: Cooperative. tmm1 07:59 Psych Safety Check: Location: Psych Room. Visual Assessment: Cooperative. tmm1 08:21 Psych Safety Check: Location: Psych Room. Visual Assessment: Cooperative. tmm1 08:35 Psych Safety Check: Location: Psych Room. Visual Assessment: Cooperative. tmm1 08:40 EKG-ADULT Returned. EDMS 08:41 Patient visited by Gregory Helms RN. dwg 15:20 T-Sheet-- Draft Copy was scanned into [employer] and attached to record. gb 11/18 14:41 ECG/EKG was scanned into [employer] and attached to record. gb Administered Medications: 11/16 17:21 Drug: Acetaminophen 650 mg [acetaminophen 325 mg tablet (2 tabs)] Route: PO; bcj 19:46 Follow up: Response: No Adverse Reaction rw1 Attachments: 11/17 04:23 [facility] Legal paperwork jmb Order Results: Lab Order: Acetaminophen Level; SPEC'M 11/16/16 12:10 Test: ACETAMINOPHEN LEVEL; Value: < 2.0; Range: 10.0-30.0; Abnormal: Below low normal; Units: UG/ML; Status: F Lab Order: Basic Metabolic Profile; SPEC'M 11/16/16 12:10 Test: GLUCOSE, FASTING; Value: 89; Range: 70-105; Units: MG/DL; Status: F Test: BLOOD UREA NITROGEN; Value: 8; Range: 7-18; Units: MG/DL; Status: F Test: CREATININE FOR GFR; Value: 0.68; Range: 0.55-1.02; Units: MG/DL; Status: F Test: SODIUM LEVEL; Range: 136-145; Units: MEQ/L; Status: I Test: POTASSIUM SERUM; Range: 3.5-5.1; Units: MEQ/L; Status: I Test: CHLORIDE LEVEL; Range: 98-107; Units: MEQ/L; Status: I Test: CARBON DIOXIDE LEVEL; Range: 21-32; Units: MEQ/L; Status: I Test: ANION GAP; Range: 8-16; Units: MEQ/L; Status: I Test: CALCIUM LEVEL; Range: 8.5-10.1; Units: MG/DL; Status: I Test: GLOMERULAR FILTRATION RATE; Value: > 60.0; Range: >60; Status: F Test: SODIUM LEVEL; Value: 141; Range: 136-145; Units: MEQ/L; Status: F Test: POTASSIUM SERUM; Value: 4.0; Range: 3.5-5.1; Units: MEQ/L; Status: F Test: CHLORIDE LEVEL; Value: 105; Range: 98-107; Units: MEQ/L; Status: F Test: CARBON DIOXIDE LEVEL; Value: 25; Range: 21-32; Units: MEQ/L; Status: F Test: ANION GAP; Value: 11; Range: 8-16; Units: MEQ/L; Status: F Test: CALCIUM LEVEL; Value: 8.7; Range: 8.5-10.1; Units: MG/DL; Status: F Test Note: ; Units are mL/min/1.73 m2 Chronic Kidney Disease Staging per NKF: Stage I & II GFR >=60 Normal to Mildly Decreased Stage III GFR 30-59 Moderately Decreased Stage IV GFR 15-29 Severely Decreased Stage V GFR <15 Very Little GFR Left ESRD GFR <15 on YOGA COORDINATOR Lab Order: Complete Blood Count; [facility] 11/16/16 12:10 Test: WHITE BLOOD COUNT; Value: 5.0; Range: 4.0-10.0; Units: K/mm3; Status: F Test: RED BLOOD COUNT; Value: 4.58; Range: 4.00-5.40; Units: M/mm3; Status: F Test: HEMOGLOBIN; Value: 13.7; Range: 12.0-16.0; Units: g/dl; Status: F Test: HEMATOCRIT; Value: 40.4; Range: 36.0-47.0; Units: %; Status: F Test: MEAN CORPUSCULAR VOLUME; Value: 88.3; Range: 80.0-96.0; Units: fl; Status: F Test: MEAN CORPUSCULAR HEMOGLOBIN; Value: 29.9; Range: 27.0-33.0; Units: pg; Status: F Test: MEAN CORPUSCULAR HGB CONC; Value: 33.9; Range: 32.0-36.5; Units: g/dl; Status: F Test: RED CELL DISTRIBUTION WIDTH; Value: 13.9; Range: 11.5-14.5; Units: %; Status: F Test: PLATELET COUNT, AUTOMATED; Value: 204; Range: 150-450; Units: k/mm3; Status: F Lab Order: Drug Eval Toxicology ED Only; SPEC'M 11/16/16 12:10 Test: AMPHETAMINES LEVEL URINE; Value: NEGATIVE; Range: NEGATIVE; Status: F Test: BARBITURATES URINE; Value: NEGATIVE; Range: NEGATIVE; Status: F Test: BENZODIAZEPINES URINE; Value: NEGATIVE; Range: NEGATIVE; Status: F Test: CANNABINOIDS URINE; Value: NEGATIVE; Range: NEGATIVE; Status: F Test: COCAINE METABOLITE URINE; Value: NEGATIVE; Range: NEGATIVE; Status: F Test: METHADONE URINE; Value: NEGATIVE; Range: NEGATIVE; Status: F Test: OPIATES URINE; Value: NEGATIVE; Range: NEGATIVE; Status: F Test: TRICYCLIC ANTIDEPRESS URINE; Value: NEGATIVE; Range: NEGATIVE; Status: F Test Note: ; ALL PRESUMPTIVE POSITIVE FINDINGS ARE UNCONFIRMED NORMAL VALUES THRESHOLD IN NG/ML AMPHETAMINES 1000 METHAMPHETAMINES 1000 BARBITURATES 300 BENZODIAZEPINES 300 CANNABINOIDS (THC) 50 COCAINE METABOLITE 300 METHADONE 300 OPIATES 300 PHENCYCLIDINE 25 TRICYCLIC ANTIDEPRESSANTS 1000 RESULTS ARE FOR MEDICAL PURPOSES ONLY. ALL URINE SPECIMENS WILL BE SAVED FOR 3 DAYS. IF CONFIRMATION OF A PRESUMPTIVE POSTIVE SCREEN RESULT IS DESIRED, CALL CHEMISTRY ([phone]) AND REQUEST URINE TO BE SENT TO REFERENCE LAB. FOR A LIST OF CLOSELY RELATED COMPOUNDS PLEASE CALL THE LAB. Lab Order: Ethyl Alcohol (ethanol); SPEC'M 11/16/16 12:10 Test: ETHYL ALCOHOL (ETHANOL); Value: < 0.003; Range: 0.000-0.010; Units: %; Status: F Lab Order: HCG,Serum Qualitative; SPEC'M 11/16/16 12:10 Test: HCG, SERUM QUALITATIVE; Value: NEGATIVE; Range: NEGATIVE; Status: F Lab Order: Liver Profile; SPEC'M 11/16/16 12:10 Test: AST/SGOT; Value: 26; Range: 15-37; Units: U/L; Status: F Test: ALT/SGPT; Value: 22; Range: 12-78; Units: U/L; Status: F Test: ALKALINE PHOSPHATASE; Value: 75; Range: 45-117; Units: U/L; Status: F Test: BILIRUBIN,TOTAL; Value: 0.4; Range: 0.2-1.0; Units: MG/DL; Status: F Test: BILIRUBIN,DIRECT; Value: < 0.1; Range: 0.0-0.2; Units: MG/DL; Status: F Test: TOTAL PROTEIN; Value: 7.1; Range: 6.4-8.2; Units: GM/DL; Status: F Test: ALBUMIN; Value: 3.7; Range: 3.2-5.2; Units: GM/DL; Status: F Test: ALBUMIN/GLOBULIN RATIO; Value: 1.09; Range: 1.00-1.93; Status: F Lab Order: Salicylate Level; SPEC'M 11/16/16 12:10 Test: SALICYLATE LEVEL; Value: < 1.7; Range: 5.0-30.0; Abnormal: Below low normal; Units: MG/DL; Status: F Lab Order: Thyroid Stimulating Hormone; SPEC'M 11/16/16 12:10 Test: THYROID STIMULATING HORMONE; Value: 1.040; Range: 0.358-3.740; Units: uIU/ML; Status: F Radiology Order: EKG-ADULT Test: EKG-ADULT REASON FOR EXAMINATION: psychiatric meds; Stationary ECG Study; [facility] - ED; ; Test Date: 2016-11-17; Pat Name: RADHA MCDOWELL Department:; Room: -; Gender: F 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 cs11 08:40 Discharge Assessment: Patient awake, alert and oriented x 3. No cognitive and/or dwg functional deficits noted. Patient verbalized understanding of disposition instructions. patient administered narcotics - no. Transferred to [facility]. The following High Risk Discharge criteria are identified: None. Condition: good Condition: stable. No special radiology studies were completed. Property secured in given to EMS transport crew. 08:41 Patient left the ED. [facility] Signatures: Dispatcher [employer] EDIN Sarai Borrero MD MD ml Greene, Daniel, RN Reynaldo Young, RENETTA Cline, Andra Villagomez, RN Matt Triplett, PSA PSA jl Mary Shin, Reg Reg gb Bennett, Misael tr Blair Taylor,MENDING CARRIER MENDING CARRIER rw1 Terrance, Lisa zo Tori Crow, PSA PSA jfDiane Funes Craig, DO cs11 McLear, Heidy, BACK HANGER BACK HANGER tmm1 Juan, Aguila mm15 Dat Serrano RN RN jmb Newman, Robert rn1 Jessica Black2 Corrections: (The following items were deleted from the chart) 11/16 11:58 11:54 Presenting complaint: Patient states: states depressed x 1 week - has been [facility] thinking about cutting self. has not acted on plan. denies self - injury. denies HI. denies recent ETOH/street drug use. denies hallucinations. [facility] 11:58 Home Meds: Klonopin 1 mg oral TbDL 1 tab 2 times per day [Inactive]; [facility] 11:58 Home Meds: Effexor 225mg oral daily [Inactive]; [facility] 11:58 Home Meds: omeprazole 20 mg oral cpDR 1 cap 2 times per day [Inactive]; [facility] 11:58 Home Meds: Topamax 100 mg oral tab 1 tab daily [Inactive]; [facility] 11:58 Home Meds: Abilify 2 mg oral tab 2 mg daily [Inactive]; [facility] Chart Complete MTDD
== END 2016-11-17 08:41 ==
LOC: M ED 11:42
DX: F32.9 Major depressive disorder, single episode, unspecified (principal); R45.851 Suicidal ideations; K21.9 Gastro-esophageal reflux disease without esophagitis; G43.909 Migraine, unspecified, not intractable, without status migrainosus; Z91.5 Personal history of self-harm

== ENCOUNTER → 2017-01-27 | Outpatient (REF) | payer OTHER ==
[2017-01-27 19:49] LABS: BASO % 0.2 % (0.0-1.0); EOS # 0.1 K/mm3 (0.0-0.50); EOS % 1.5 % (0.0-3.0); LARGE UNSTAINED CELL # 0.1 K/mm3 (0.0-0.4); LARGE UNSTAINED CELL % 1.2 % (0.0-4.0); LYMPH # 2.8 K/mm3 (1.5-4.5); LYMPH % 33.1 % (24.0-44.0); MEAN CORPUSCULAR HGB CONC 32.2 g/dl (32.0-36.5); MEAN CORPUSCULAR VOLUME 90.1 fl (80.0-96.0); MONO # 0.3 K/mm3 (0.0-0.8); MONO % 3.8 % (0.0-5.0); NEUTROPHILS % 60.2 % (36.0-66.0); PLATELET COUNT, AUTOMATED 283 k/mm3 (150-450); RED CELL DISTRIBUTION WIDTH 13.6 % (11.5-14.5); WHITE BLOOD COUNT 8.3 K/mm3 (4.0-10.0)
[2017-01-27 20:06] LABS: ALBUMIN 3.8 GM/DL (3.2-5.2); ALBUMIN/GLOBULIN RATIO 1.09 (1.00-1.93); ALKALINE PHOSPHATASE 98 U/L (45-117); ALT/SGPT 26 U/L (12-78); ANION GAP 9 MEQ/L (8-16); AST/SGOT 14 U/L (15-37); BILIRUBIN,TOTAL 0.2 MG/DL (0.2-1.0); BLOOD UREA NITROGEN 10 MG/DL (7-18); CALCIUM LEVEL 8.8 MG/DL (8.5-10.1); CARBON DIOXIDE LEVEL 25 MEQ/L (21-32); CHLORIDE LEVEL 107 MEQ/L (98-107); CREATININE FOR GFR 0.85 MG/DL (0.55-1.02); GLOMERULAR FILTRATION RATE > 60.0 (>60); GLUCOSE, FASTING 90 MG/DL (70-105); POTASSIUM SERUM 3.9 MEQ/L (3.5-5.1); SODIUM LEVEL 141 MEQ/L (136-145); TOTAL PROTEIN 7.3 GM/DL (6.4-8.2)
== END ==
LOC: M LABNEURO 17:31
PROVIDERS: ATTEND Surgery
DX: Z01.812 Encounter for preprocedural laboratory examination (principal); K21.9 Gastro-esophageal reflux disease without esophagitis

== ENCOUNTER 2017-07-09 18:40 | Emergency (ER) | payer OTHER ==
[~2017-07-09] VITALS: Ht 160 cm; Wt 78.2 kg
[~2017-07-09 18:40] MED LIST changes: +ABIL1TAB11 PO; -ABIL5TAB5 PO; -NAPR500T2 PO; +NAPR500T3 PO; +TOPA100T12 PO; -TOPA100T8 PO; +TOPA1TAB PO; -TOPA25TA10 PO; +TRAZ50TA11 PO; -TRAZ50TA4 PO; -VENL75CA PO; +VENL75CA2 PO
[2017-07-09] MEDS ORDERED: DULO1CAP2 (18:50)
[2017-07-09] MEDS ORDERED: DULO1CAP3 (18:50)
[2017-07-09] MEDS ORDERED: diazePAM 5 MG TAB PO ONE (21:30)
[2017-07-09] MEDS ORDERED: KETOROLAC 60 MG/2 ML VIAL (J1885) IM ONE (21:30)
[2017-07-09] MEDS ORDERED: VALI5TAB PO (21:38)
[2017-07-09] MEDS ORDERED: PRED20TA PO (21:38)
[2017-07-09 22:03] VITALS: BP 131/75
== END 2017-07-09 22:05 | disposition home or self-care (01) ==
LOC: M ED 18:40
DX: S16.1XXA Strain of muscle, fascia and tendon at neck level, initial encounter (principal); X58.XXXA Exposure to other specified factors, initial encounter; Y92.013 Bedroom of single-family (private) house as the place of occurrence of the external cause; Y93.84 Activity, sleeping; Y99.8 Other external cause status; F41.9 Anxiety disorder, unspecified; F33.9 Major depressive disorder, recurrent, unspecified; Z79.899 Other long term (current) drug therapy; Z98.0 Intestinal bypass and anastomosis status
CPT/HCPCS: 96372; 99282; J1885

== ENCOUNTER 2017-12-02 07:16 | Inpatient (IN) | payer OTHER ==
[2017-12-02 08:55] LABS: HEMATOCRIT 37.6 % (36.0-47.0); HEMOGLOBIN 12.8 g/dl (12.0-16.0); MEAN CORPUSCULAR HEMOGLOBIN 30.3 pg (27.0-33.0); MEAN CORPUSCULAR VOLUME 89.1 fl (80.0-96.0); PLATELET COUNT, AUTOMATED 211 10^3/uL (150-450); RED BLOOD COUNT 4.22 10^6/uL (4.00-5.40); RED CELL DISTRIBUTION WIDTH 13.5 % (11.5-14.5); WHITE BLOOD COUNT 7.1 10^3/uL (4.0-10.0)
[2017-12-02 09:08] LABS: CONTROL LINE HCG INT CTR LINE PRESENT; HCG, SERUM QUALITATIVE NEGATIVE (NEGATIVE)
[2017-12-02 09:16] LABS: AMPHETAMINES LEVEL URINE NEGATIVE (NEGATIVE); BARBITURATES URINE NEGATIVE (NEGATIVE); BENZODIAZEPINES URINE NEGATIVE (NEGATIVE); CANNABINOIDS URINE NEGATIVE (NEGATIVE); COCAINE METABOLITE URINE POSITIVE (NEGATIVE); METHADONE URINE NEGATIVE (NEGATIVE); OPIATES URINE NEGATIVE (NEGATIVE); PHENCYCLIDINE URINE NEGATIVE (NEGATIVE)
[2017-12-02 09:25] LABS: ACETAMINOPHEN LEVEL < 2.0 UG/ML (10.0-30.0); ALBUMIN 3.6 GM/DL (3.2-5.2); ALKALINE PHOSPHATASE 86 U/L (45-117); ALT/SGPT 21 U/L (12-78); ANION GAP 10 MEQ/L (8-16); AST/SGOT 16 U/L (7-37); BILIRUBIN,DIRECT 0.1 MG/DL (0.0-0.2); BILIRUBIN,TOTAL 0.2 MG/DL (0.2-1.0); BLOOD UREA NITROGEN 7 MG/DL (7-18); CARBON DIOXIDE LEVEL 22 MEQ/L (21-32); CHLORIDE LEVEL 113 MEQ/L (98-107); CREATININE FOR GFR 0.67 MG/DL (0.55-1.30); ETHYL ALCOHOL (ETHANOL) 0.091 % (0.000-0.010); GLOMERULAR FILTRATION RATE > 60.0 (>60); GLUCOSE, FASTING 91 MG/DL (70-100); POTASSIUM SERUM 3.7 MEQ/L (3.5-5.1); SALICYLATE LEVEL < 1.7 MG/DL (5.0-30.0); SODIUM LEVEL 145 MEQ/L (136-145); TOTAL PROTEIN 6.6 GM/DL (6.4-8.2)
[2017-12-02] MEDS ORDERED: MAALOX 30 ML SUSP *UDC PO (15:00)
[2017-12-02] MEDS ORDERED: MOM 30ML SUSPENSION UDC PO (15:00)
[2017-12-02] MEDS ORDERED: chlordiazePOXIDE 25 MG CAP PO ×3 (15:00→16:00)
[2017-12-02] MEDS: THIAMINE 100 MG TAB PO (16:03)
[2017-12-02] MEDS: chlordiazePOXIDE 25 MG CAP PO ×2 (16:04→21:44)
[2017-12-02] MEDS: MULTIVITAMINS/MINERALS THERAP 1 TAB PO (16:04)
[2017-12-02] MEDS: ACETAMINOPHEN TAB 650MG DOSE (2X325MG) PO (16:04)
[2017-12-03] MEDS ORDERED: traZODone 50 MG TAB PO (07:45)
[2017-12-03] MEDS: THIAMINE 100 MG TAB PO (09:53)
[2017-12-03] MEDS: chlordiazePOXIDE 25 MG CAP PO ×3 (09:53→21:20)
[2017-12-03] MEDS: TOPIRAMATE (TopAMAX) 100 MG TAB PO ×2 (09:53→21:21)
[2017-12-03] MEDS: DULoxetine 30 MG CAP (CYMBALTA) PO (09:53)
[2017-12-03] MEDS: MULTIVITAMINS/MINERALS THERAP 1 TAB PO (09:53)
[2017-12-03] MEDS: FLUoxetine 10 MG CAP PO (09:53)
[2017-12-03] MEDS: FOLIC ACID 1 MG TAB PO (09:53)
[2017-12-03 11:43] LABS: HEPATITIS B SURFACE ANTIGEN NEGATIVE (NEGATIVE)
[2017-12-03 12:01] LABS: KETONE, URINE AUTO RFX TRACE mg/dL (NEGATIVE); MUCUS, URINE RFX SMALL (NEGATIVE); NITRITE, URINE AUTO RFX NEGATIVE (NEGATIVE); RBC, URINE AUTO RFX 2 /HPF (0-3); SPECIFIC GRAVITY UR AUTO RFX 1.015 (1.002-1.035); SQUAM EPITHELIAL CELL UR AURFX 3 /HPF (0-6)
[2017-12-03 12:11] LABS: HEPATITIS B CORE ANTIBODY IGM NEGATIVE (NEGATIVE)
[2017-12-03 12:12] LABS: HEPATITIS A ANTIBODY IGM NEGATIVE (NEGATIVE); LEUKOCYTE ESTERASE UR AUTO RFX TRACE (NEGATIVE); WBC, URINE AUTO RFX 30 /HPF (0-3)
[2017-12-03 13:29] LABS: HIV 1&2 SCREEN CENTAUR NEGATIVE (NEGATIVE)
[2017-12-04] MEDS: chlordiazePOXIDE 25 MG CAP PO ×3 (08:52→23:04)
[2017-12-04] MEDS: MULTIVITAMINS/MINERALS THERAP 1 TAB PO (08:52)
[2017-12-04] MEDS: ACETAMINOPHEN TAB 650MG DOSE (2X325MG) PO (08:52)
[2017-12-04] MEDS: FLUoxetine 20 MG CAP PO (08:52)
[2017-12-04] MEDS: TOPIRAMATE (TopAMAX) 100 MG TAB PO ×2 (08:52→23:04)
[2017-12-04] MEDS: DULoxetine 30 MG CAP (CYMBALTA) PO (08:52)
[2017-12-04] MEDS: THIAMINE 100 MG TAB PO (08:52)
[2017-12-04] MEDS: FOLIC ACID 1 MG TAB PO (08:52)
[2017-12-05] MEDS: MULTIVITAMINS/MINERALS THERAP 1 TAB PO (08:48)
[2017-12-05] MEDS: FLUoxetine 20 MG CAP PO (08:48)
[2017-12-05] MEDS: THIAMINE 100 MG TAB PO (08:48)
[2017-12-05] MEDS: TOPIRAMATE (TopAMAX) 100 MG TAB PO ×2 (08:48→20:38)
[2017-12-05] MEDS: DULoxetine 30 MG CAP (CYMBALTA) PO (08:48)
[2017-12-05] MEDS: chlordiazePOXIDE 25 MG CAP PO ×3 (08:48→20:38)
[2017-12-05] MEDS: FOLIC ACID 1 MG TAB PO (08:48)
[2017-12-05] MEDS: NITROFURANTOIN (MACROBID) 100 MG CAP PO ×2 (11:34→20:38)
[2017-12-05] MEDS: ACETAMINOPHEN TAB 650MG DOSE (2X325MG) PO (20:39)
[2017-12-06] MEDS: chlordiazePOXIDE 25 MG CAP PO ×2 (08:52→20:53)
[2017-12-06] MEDS: FLUoxetine 20 MG CAP PO (08:52)
[2017-12-06] MEDS: TOPIRAMATE (TopAMAX) 100 MG TAB PO ×2 (08:52→20:53)
[2017-12-06] MEDS: MULTIVITAMINS/MINERALS THERAP 1 TAB PO (08:53)
[2017-12-06] MEDS: FOLIC ACID 1 MG TAB PO (08:53)
[2017-12-06] MEDS: DULoxetine 30 MG CAP (CYMBALTA) PO (08:53)
[2017-12-06] MEDS: THIAMINE 100 MG TAB PO (08:53)
[2017-12-06] MEDS: NITROFURANTOIN (MACROBID) 100 MG CAP PO ×2 (08:53→20:53)
[2017-12-07] MEDS: THIAMINE 100 MG TAB PO (09:13)
[2017-12-07] MEDS: FOLIC ACID 1 MG TAB PO (09:13)
[2017-12-07] MEDS: FLUoxetine 20 MG CAP PO (09:13)
[2017-12-07] MEDS: MULTIVITAMINS/MINERALS THERAP 1 TAB PO (09:13)
[2017-12-07] MEDS: TOPIRAMATE (TopAMAX) 100 MG TAB PO ×2 (09:13→21:37)
[2017-12-07] MEDS: NITROFURANTOIN (MACROBID) 100 MG CAP PO ×2 (09:13→21:37)
[2017-12-07] MEDS: busPIRone 10 MG TAB PO ×2 (10:06→21:37)
[2017-12-07] MEDS: ACETAMINOPHEN TAB 650MG DOSE (2X325MG) PO (21:39)
[2017-12-08] MEDS: TOPIRAMATE (TopAMAX) 100 MG TAB PO ×2 (09:00→21:31)
[2017-12-08] MEDS: busPIRone 10 MG TAB PO ×2 (09:00→21:31)
[2017-12-08] MEDS: THIAMINE 100 MG TAB PO (09:01)
[2017-12-08] MEDS: MULTIVITAMINS/MINERALS THERAP 1 TAB PO (09:01)
[2017-12-08] MEDS: NITROFURANTOIN (MACROBID) 100 MG CAP PO ×2 (09:01→21:31)
[2017-12-08] MEDS: FLUoxetine 20 MG CAP PO (09:01)
[2017-12-08] MEDS: FOLIC ACID 1 MG TAB PO (09:01)
[2017-12-08] MEDS: LACTOBACILLUS ACIDOPHILUS CAP (BACID) PO ×2 (10:51→21:31)
[2017-12-09] MEDS: FOLIC ACID 1 MG TAB PO (08:32)
[2017-12-09] MEDS: MULTIVITAMINS/MINERALS THERAP 1 TAB PO (08:32)
[2017-12-09] MEDS: FLUoxetine 20 MG CAP PO (08:32)
[2017-12-09] MEDS: busPIRone 10 MG TAB PO ×2 (08:32→20:29)
[2017-12-09] MEDS: TOPIRAMATE (TopAMAX) 100 MG TAB PO ×2 (08:33→20:28)
[2017-12-09] MEDS: LACTOBACILLUS ACIDOPHILUS CAP (BACID) PO ×2 (08:33→20:28)
[2017-12-09] MEDS: THIAMINE 100 MG TAB PO (08:33)
[2017-12-09] MEDS: NITROFURANTOIN (MACROBID) 100 MG CAP PO ×2 (08:33→20:29)
[2017-12-09] MEDS: ACETAMINOPHEN TAB 650MG DOSE (2X325MG) PO (19:06)
[2017-12-10] MEDS: ACETAMINOPHEN TAB 650MG DOSE (2X325MG) PO ×2 (07:05→17:57)
[2017-12-10] MEDS: NITROFURANTOIN (MACROBID) 100 MG CAP PO ×2 (08:28→20:30)
[2017-12-10] MEDS: busPIRone 10 MG TAB PO ×2 (08:28→20:30)
[2017-12-10] MEDS: THIAMINE 100 MG TAB PO (08:28)
[2017-12-10] MEDS: TOPIRAMATE (TopAMAX) 100 MG TAB PO ×2 (08:28→20:30)
[2017-12-10] MEDS: MULTIVITAMINS/MINERALS THERAP 1 TAB PO (08:28)
[2017-12-10] MEDS: FOLIC ACID 1 MG TAB PO (08:28)
[2017-12-10] MEDS: FLUoxetine 20 MG CAP PO (08:28)
[2017-12-10] MEDS: LACTOBACILLUS ACIDOPHILUS CAP (BACID) PO ×2 (08:53→20:30)
[2017-12-11] MEDS: TOPIRAMATE (TopAMAX) 100 MG TAB PO ×2 (08:24→21:48)
[2017-12-11] MEDS: THIAMINE 100 MG TAB PO (08:24)
[2017-12-11] MEDS: LACTOBACILLUS ACIDOPHILUS CAP (BACID) PO ×2 (08:24→21:47)
[2017-12-11] MEDS: NITROFURANTOIN (MACROBID) 100 MG CAP PO ×2 (08:24→21:48)
[2017-12-11] MEDS: busPIRone 10 MG TAB PO ×2 (08:25→21:48)
[2017-12-11] MEDS: MULTIVITAMINS/MINERALS THERAP 1 TAB PO (08:25)
[2017-12-11] MEDS: FLUoxetine 20 MG CAP PO (08:25)
[2017-12-11] MEDS: FOLIC ACID 1 MG TAB PO (08:25)
[2017-12-11] MEDS: ACETAMINOPHEN TAB 650MG DOSE (2X325MG) PO (16:04)
[2017-12-12] MEDS: NITROFURANTOIN (MACROBID) 100 MG CAP PO ×2 (08:46→20:58)
[2017-12-12] MEDS: MULTIVITAMINS/MINERALS THERAP 1 TAB PO (08:46)
[2017-12-12] MEDS: busPIRone 10 MG TAB PO ×2 (08:47→20:58)
[2017-12-12] MEDS: FLUoxetine 20 MG CAP PO (08:47)
[2017-12-12] MEDS: FOLIC ACID 1 MG TAB PO (08:47)
[2017-12-12] MEDS: TOPIRAMATE (TopAMAX) 100 MG TAB PO ×2 (08:47→20:58)
[2017-12-12] MEDS: LACTOBACILLUS ACIDOPHILUS CAP (BACID) PO ×2 (08:47→20:58)
[2017-12-12] MEDS: THIAMINE 100 MG TAB PO (08:47)
[2017-12-12] MEDS: ACETAMINOPHEN TAB 650MG DOSE (2X325MG) PO (21:00)
[2017-12-13] MEDS: busPIRone 10 MG TAB PO (08:16)
[2017-12-13] MEDS: FLUoxetine 20 MG CAP PO (08:16)
[2017-12-13] MEDS: LACTOBACILLUS ACIDOPHILUS CAP (BACID) PO (08:16)
[2017-12-13] MEDS: NITROFURANTOIN (MACROBID) 100 MG CAP PO (08:16)
[2017-12-13] MEDS: TOPIRAMATE (TopAMAX) 100 MG TAB PO (08:16)
[2017-12-13] MEDS: THIAMINE 100 MG TAB PO (08:16)
[2017-12-13] MEDS: FOLIC ACID 1 MG TAB PO (08:16)
[2017-12-13] MEDS: MULTIVITAMINS/MINERALS THERAP 1 TAB PO (08:16)
== END 2017-12-13 09:30 | DRG 755 ==
LOC: M ED 07:16 → M ED INP 10:26 → M PSY 12:11
DX: F43.23 Adjustment disorder with mixed anxiety and depressed mood (principal); F14.10 Cocaine abuse, uncomplicated; F10.20 Alcohol dependence, uncomplicated; F19.94 Other psychoactive substance use, unspecified with psychoactive substance-induced mood disorder; Z90.49 Acquired absence of other specified parts of digestive tract; Z98.84 Bariatric surgery status; G43.909 Migraine, unspecified, not intractable, without status migrainosus; R35.0 Frequency of micturition; Z79.899 Other long term (current) drug therapy; B96.1 Klebsiella pneumoniae [K. pneumoniae] as the cause of diseases classified elsewhere

== ENCOUNTER 2018-04-17 05:44 | Emergency (ER) | payer OTHER ==
[2018-04-17] MEDS: ONDANSETRON 4 MG ORAL DISINTEGRATING TAB (Q0162 PER 1MG) PO (06:40)
== END 2018-04-17 07:37 | disposition home or self-care (01) ==
LOC: M ED 05:44
DX: F10.10 Alcohol abuse, uncomplicated (principal); F12.10 Cannabis abuse, uncomplicated; F16.10 Hallucinogen abuse, uncomplicated; G43.909 Migraine, unspecified, not intractable, without status migrainosus; F33.9 Major depressive disorder, recurrent, unspecified; F41.9 Anxiety disorder, unspecified; Z87.442 Personal history of urinary calculi; Z98.84 Bariatric surgery status; Z79.899 Other long term (current) drug therapy
CPT/HCPCS: Q0162

== ENCOUNTER → 2018-04-28 | Outpatient (REF) | payer OTHER | LOC: M SFHCPLAZ 16:59 | DX: Z00.00 Encounter for general adult medical examination without abnormal findings (principal); Z98.84 Bariatric surgery status; E55.9 Vitamin D deficiency, unspecified; F41.8 Other specified anxiety disorders ==

== ENCOUNTER → 2018-05-03 | Outpatient (CLI) | payer OTHER ==
[2018-05-03 10:40] LABS: HEMATOCRIT 37.2 % (36.0-47.0); HEMOGLOBIN 12.2 g/dl (12.0-15.5); MEAN CORPUSCULAR HEMOGLOBIN 30.5 pg (27.0-33.0); MEAN CORPUSCULAR HGB CONC 32.8 g/dl (32.0-36.5); PLATELET COUNT, AUTOMATED 203 10^3/uL (150-450); RED CELL DISTRIBUTION WIDTH 12.9 % (11.5-14.5); WHITE BLOOD COUNT 4.1 10^3/uL (4.0-10.0)
[2018-05-03 11:25] LABS: ALBUMIN 3.7 GM/DL (3.2-5.2); ALBUMIN/GLOBULIN RATIO 1.12 (1.00-1.93); ALKALINE PHOSPHATASE 78 U/L (45-117); ALT/SGPT 30 U/L (12-78); ANION GAP 9 MEQ/L (8-16); AST/SGOT 18 U/L (7-37); BILIRUBIN,TOTAL 0.3 MG/DL (0.2-1.0); BLOOD UREA NITROGEN 20 MG/DL (7-18); CALCIUM LEVEL 8.4 MG/DL (8.5-10.1); CARBON DIOXIDE LEVEL 25 MEQ/L (21-32); CHLORIDE LEVEL 111 MEQ/L (98-107); CREATININE FOR GFR 0.91 MG/DL (0.55-1.30); FREE T4 0.79 NG/DL (0.76-1.46); GLOMERULAR FILTRATION RATE > 60.0 (>60); GLUCOSE, FASTING 85 MG/DL (70-100); IRON (FE) 40 UG/DL (50-170); POTASSIUM SERUM 4.1 MEQ/L (3.5-5.1); SODIUM LEVEL 145 MEQ/L (136-145); TOTAL IRON BINDING CAPACITY 364 UG/DL (250-450)
[2018-05-03 11:40] LABS: TOTAL 25(OH) VITAMIN D 20.1 NG/ML (30.0-100.0); VITAMIN B12 LEVEL 310 PG/ML (247-911)
== END ==
LOC: M LAB 10:12
DX: Z00.00 Encounter for general adult medical examination without abnormal findings (principal); Z98.84 Bariatric surgery status; E55.9 Vitamin D deficiency, unspecified; F41.8 Other specified anxiety disorders
CPT/HCPCS: 83550

== ENCOUNTER → 2018-05-10 | Outpatient (CLI) | payer OTHER ==
[2018-05-10 11:25] LABS: BASO % 0.2 % (0.0-1.0); EOS % 0.6 % (0.0-3.0); HEMATOCRIT 37.1 % (36.0-47.0); HEMOGLOBIN 12.2 g/dl (12.0-15.5); LYMPH # 2.9 10^3/uL (1.5-4.5); LYMPH % 60.4 % (24.0-44.0); MEAN CORPUSCULAR HEMOGLOBIN 29.8 pg (27.0-33.0); MEAN CORPUSCULAR HGB CONC 32.9 g/dl (32.0-36.5); MEAN CORPUSCULAR VOLUME 90.5 fl (80.0-96.0); MONO # 0.3 10^3/uL (0.0-0.8); MONO % 5.4 % (0.0-5.0); NEUTROPHILS # 1.6 10^3/uL (1.8-7.7); NEUTROPHILS % 33.4 % (36.0-66.0); PLATELET COUNT, AUTOMATED 216 10^3/uL (150-450); WHITE BLOOD COUNT 4.9 10^3/uL (4.0-10.0)
[2018-05-10 11:49] LABS: TOTAL 25(OH) VITAMIN D 23.1 NG/ML (30.0-100.0)
[2018-05-10 12:00] LABS: ERYTHROCYTE SEDIMENTATION RATE 8 mm/hr (0-20)
[2018-05-10 12:04] LABS: ALBUMIN 3.7 GM/DL (3.2-5.2); ALBUMIN/GLOBULIN RATIO 1.16 (1.00-1.93); ALKALINE PHOSPHATASE 81 U/L (45-117); ALT/SGPT 28 U/L (12-78); ANION GAP 6 MEQ/L (8-16); AST/SGOT 27 U/L (7-37); BILIRUBIN,TOTAL 0.3 MG/DL (0.2-1.0); BLOOD UREA NITROGEN 15 MG/DL (7-18); CALCIUM LEVEL 8.5 MG/DL (8.5-10.1); CARBON DIOXIDE LEVEL 26 MEQ/L (21-32); CHLORIDE LEVEL 109 MEQ/L (98-107); CREATININE FOR GFR 0.81 MG/DL (0.55-1.30); GLOMERULAR FILTRATION RATE > 60.0 (>60); GLUCOSE, FASTING 94 MG/DL (70-100); RHEUMATOID FACTOR QUANT < 10.0 IU/ML (<15.0); SODIUM LEVEL 141 MEQ/L (136-145); TOTAL PROTEIN 6.9 GM/DL (6.4-8.2)
[2018-05-13 14:49] LABS: ANTINUCLEAR ANTIBODIES DIRECT Negative (Negative)
== END ==
LOC: M LAB 10:07
DX: R51 Headache (principal)
CPT/HCPCS: 84443

== ENCOUNTER 2018-06-18 20:49 | Emergency (ER) | payer MEDICAID, OTHER ==
[2018-06-18 21:21] LABS: KETONE, URINE AUTO RFX TRACE mg/dL (NEGATIVE); LEUKOCYTE ESTERASE UR AUTO RFX 1+ (NEGATIVE); MUCUS, URINE RFX SMALL (NEGATIVE); NITRITE, URINE AUTO RFX NEGATIVE (NEGATIVE); RBC, URINE AUTO RFX 17 /HPF (0-3); SQUAM EPITHELIAL CELL UR AURFX 1 /HPF (0-6); WBC, URINE AUTO RFX 2 /HPF (0-3)
[2018-06-18 21:55] LABS: BASO % 0.3 % (0.0-1.0); EOS # 0.1 10^3/uL (0.0-0.50); EOS % 0.9 % (0.0-3.0); HEMATOCRIT 37.9 % (36.0-47.0); HEMOGLOBIN 12.3 g/dl (12.0-15.5); IMMATURE GRANULOCYTE % 0.1 % (0-3.0); LYMPH # 4.2 10^3/uL (1.5-4.5); LYMPH % 56.5 % (24.0-44.0); MEAN CORPUSCULAR HGB CONC 32.5 g/dl (32.0-36.5); MEAN CORPUSCULAR VOLUME 89.4 fl (80.0-96.0); MONO # 0.5 10^3/uL (0.0-0.8); MONO % 6.4 % (0.0-5.0); NEUTROPHILS # 2.7 10^3/uL (1.8-7.7); NEUTROPHILS % 35.8 % (36.0-66.0); PLATELET COUNT, AUTOMATED 238 10^3/uL (150-450); RED BLOOD COUNT 4.24 10^6/uL (4.00-5.40); RED CELL DISTRIBUTION WIDTH 12.7 % (11.5-14.5); WHITE BLOOD COUNT 7.5 10^3/uL (4.0-10.0)
[2018-06-18 22:05] LABS: ANION GAP 9 MEQ/L (8-16); BLOOD UREA NITROGEN 21 MG/DL (7-18); CALCIUM LEVEL 8.4 MG/DL (8.5-10.1); CARBON DIOXIDE LEVEL 26 MEQ/L (21-32); CHLORIDE LEVEL 103 MEQ/L (98-107); CREATININE FOR GFR 0.79 MG/DL (0.55-1.30); GLOMERULAR FILTRATION RATE > 60.0 (>60); GLUCOSE, FASTING 81 MG/DL (70-100); POTASSIUM SERUM 3.7 MEQ/L (3.5-5.1); SODIUM LEVEL 138 MEQ/L (136-145)
[2018-06-18] MEDS: KETOROLAC 30 MG/ML VIAL (J1885) IV (22:45)
[2018-06-18] MEDS: NS 1,000 ML IV (22:45)
== END 2018-06-19 00:50 | disposition home or self-care (01) ==
LOC: M ED 06-19 00:50
DX: R10.31 Right lower quadrant pain (principal); R31.9 Hematuria, unspecified; Z87.42 Personal history of other diseases of the female genital tract; Z87.442 Personal history of urinary calculi; Z79.899 Other long term (current) drug therapy
CPT/HCPCS: J1885

== ENCOUNTER → 2018-07-12 | Outpatient (REF) | payer OTHER ==
[2018-07-12 14:08] LABS: HEMATOCRIT 38.3 % (36.0-47.0); HEMOGLOBIN 12.6 g/dl (12.0-15.5); MEAN CORPUSCULAR HEMOGLOBIN 29.1 pg (27.0-33.0); MEAN CORPUSCULAR HGB CONC 32.9 g/dl (32.0-36.5); MEAN CORPUSCULAR VOLUME 88.5 fl (80.0-96.0); PLATELET COUNT, AUTOMATED 259 10^3/uL (150-450); RED BLOOD COUNT 4.33 10^6/uL (4.00-5.40); RED CELL DISTRIBUTION WIDTH 13.4 % (11.5-14.5); WHITE BLOOD COUNT 5.4 10^3/uL (4.0-10.0)
[2018-07-12 16:28] LABS: ANION GAP 9 MEQ/L (8-16); BLOOD UREA NITROGEN 11 MG/DL (7-18); CALCIUM LEVEL 9.5 MG/DL (8.5-10.1); CARBON DIOXIDE LEVEL 24 MEQ/L (21-32); CHLORIDE LEVEL 105 MEQ/L (98-107); CREATININE FOR GFR 0.62 MG/DL (0.55-1.30); FOLATE 9.1 NG/ML (>5.4); GLOMERULAR FILTRATION RATE > 60.0 (>60); GLUCOSE, FASTING 76 MG/DL (70-100); HCG, SERUM QUANTITATIVE 49996 MIU/ML; POTASSIUM SERUM 4.1 MEQ/L (3.5-5.1); SODIUM LEVEL 138 MEQ/L (136-145)
[2018-07-13 08:34] LABS: RUBELLA IgG QUALITATIVE IMMUNE (IMMUNE)
[2018-07-13 08:38] LABS: HBsAg Prenatal NEGATIVE (NEGATIVE)
[2018-07-13 09:03] LABS: HEPATITIS C VIRUS ABY INDEX < 0.0 INDEX (<0.8)
[2018-07-13 09:03] LABS: HIV 1&2 SCREEN CENTAUR NEGATIVE (NEGATIVE)
== END ==
LOC: M LAB REF 13:20
DX: O36.80X0 Pregnancy with inconclusive fetal viability, not applicable or unspecified (principal)

== ENCOUNTER 2018-08-12 14:06 | Emergency (ER) | payer OTHER ==
[2018-08-12] MEDS: ACETAMINOPHEN TAB 650MG DOSE (2X325MG) PO (17:21)
== END 2018-08-12 17:22 | disposition home or self-care (01) ==
LOC: M ED 14:06
DX: O99.341 Other mental disorders complicating pregnancy, first trimester (principal); F32.9 Major depressive disorder, single episode, unspecified; O99.331 Smoking (tobacco) complicating pregnancy, first trimester; F17.210 Nicotine dependence, cigarettes, uncomplicated; F11.11 Opioid abuse, in remission; F14.11 Cocaine abuse, in remission; F12.11 Cannabis abuse, in remission; F10.11 Alcohol abuse, in remission; Z3A.11 11 weeks gestation of pregnancy; Z79.899 Other long term (current) drug therapy
CPT/HCPCS: 99284

== ENCOUNTER 2018-09-15 14:46 | Emergency (ER) | payer OTHER ==
[2018-09-15 15:16] LABS: AMORPHOUS SEDIMENT RFX SMALL (NEGATIVE); KETONE, URINE AUTO RFX NEGATIVE (NEGATIVE); MUCUS, URINE RFX SMALL (NEGATIVE); NITRITE, URINE AUTO RFX NEGATIVE (NEGATIVE); RBC, URINE AUTO RFX 27 /HPF (0-3); SPECIFIC GRAVITY UR AUTO RFX 1.008 (1.002-1.035); SQUAM EPITHELIAL CELL UR AURFX 2 /HPF (0-6)
[2018-09-15 15:17] LABS: LEUKOCYTE ESTERASE UR AUTO RFX 2+ (NEGATIVE); WBC, URINE AUTO RFX 28 /HPF (0-3)
== END 2018-09-15 15:30 | disposition home or self-care (01) ==
LOC: M ED 14:46
DX: O23.42 Unspecified infection of urinary tract in pregnancy, second trimester (principal); Z3A.15 15 weeks gestation of pregnancy; O99.342 Other mental disorders complicating pregnancy, second trimester; O99.842 Bariatric surgery status complicating pregnancy, second trimester; O99.332 Smoking (tobacco) complicating pregnancy, second trimester; Z87.442 Personal history of urinary calculi; Z79.899 Other long term (current) drug therapy
CPT/HCPCS: 81001

== ENCOUNTER → 2018-12-01 | Outpatient (CLI) | payer OTHER ==
[~2018-12-01] MED LIST changes: +BUSP10TA PO; +DULO1CAP2 PO; +DULO1CAP3 PO; -EFFE150C PO; +EFFE150C2 PO; +FLUO20CA19 PO; +FOLI1TAB11 PO; +LAMO25TA4; +MACR100C43 PO; +NAPR-885 PO; -NAPR500T3 PO; +PRED20TA PO; -PROP40TA PO; +PROP40TA62 PO; +RISATAB3 PO; +TOPI100T9; +TOPI100T9 PO; +TRAZ-160 PO; -TRAZ50TA11 PO; +VALI5TAB PO; +prenatal PO
== END ==
LOC: M LAB 12:40
PROVIDERS: ATTEND Nurse Practitioner Women's Health
DX: Z34.82 Encounter for supervision of other normal pregnancy, second trimester (principal)

== ENCOUNTER → 2018-12-16 | Outpatient (REF) | payer OTHER ==
[2018-12-16 15:32] LABS: HEMATOCRIT 31.8 % (36.0-47.0); HEMOGLOBIN 9.8 g/dl (12.0-15.5); MEAN CORPUSCULAR HEMOGLOBIN 25.7 pg (27.0-33.0); MEAN CORPUSCULAR HGB CONC 30.8 g/dl (32.0-36.5); MEAN CORPUSCULAR VOLUME 83.2 fl (80.0-96.0); PLATELET COUNT, AUTOMATED 225 10^3/uL (150-450); RED BLOOD COUNT 3.82 10^6/uL (4.00-5.40); WHITE BLOOD COUNT 7.5 10^3/uL (4.0-10.0)
== END ==
LOC: M LAB REF 14:42
PROVIDERS: ATTEND Nurse Practitioner Women's Health
DX: Z34.83 Encounter for supervision of other normal pregnancy, third trimester (principal); Z36.89 Encounter for other specified antenatal screening

== ENCOUNTER → 2019-01-26 | Outpatient (REF) | payer OTHER ==
[~2019-01-26] MED LIST changes: -VENL225T PO; +VENL225T5 PO
[2019-01-26 18:11] LABS: HEMATOCRIT 31.2 % (36.0-47.0); HEMOGLOBIN 9.4 g/dl (12.0-15.5); MEAN CORPUSCULAR HEMOGLOBIN 25.1 pg (27.0-33.0); MEAN CORPUSCULAR HGB CONC 30.1 g/dl (32.0-36.5); MEAN CORPUSCULAR VOLUME 83.4 fl (80.0-96.0); PLATELET COUNT, AUTOMATED 205 10^3/uL (150-450); RED BLOOD COUNT 3.74 10^6/uL (4.00-5.40); WHITE BLOOD COUNT 8.3 10^3/uL (4.0-10.0)
== END ==
LOC: M LAB REF 17:16
PROVIDERS: ATTEND Nurse Practitioner Women's Health
DX: Z34.83 Encounter for supervision of other normal pregnancy, third trimester (principal); D64.9 Anemia, unspecified

== ENCOUNTER → 2019-02-09 | Outpatient (REF) | payer OTHER | LOC: M LAB REF 17:03 | PROVIDERS: ATTEND Nurse Practitioner Women's Health | DX: O26.893 Other specified pregnancy related conditions, third trimester (principal) ==

== ENCOUNTER 2019-03-15 14:33 | Observation (INO) | payer OTHER ==
[~2019-03-15] VITALS: Ht 157.5 cm; Wt 75.3 kg
[~2019-03-15 14:33] MED LIST changes: -TRAZ-160 PO; +TRAZ-252 PO
[2019-03-15] MEDS ORDERED: FERR325T3 PO (14:39)
[2019-03-15 16:05] LABS: BASO % 0.1 % (0.0-1.0); EOS # 0.1 10^3/uL (0.0-0.50); EOS % 0.7 % (0.0-3.0); HEMATOCRIT 36.8 % (36.0-47.0); HEMOGLOBIN 11.4 g/dl (12.0-15.5); LYMPH % 23.9 % (24.0-44.0); MEAN CORPUSCULAR HEMOGLOBIN 27.2 pg (27.0-33.0); MEAN CORPUSCULAR VOLUME 87.8 fl (80.0-96.0); MONO # 0.4 10^3/uL (0.0-0.8); MONO % 4.6 % (0.0-5.0); NEUTROPHILS # 5.8 10^3/uL (1.8-7.7); NEUTROPHILS % 70.3 % (36.0-66.0); PLATELET COUNT, AUTOMATED 225 10^3/uL (150-450); RED BLOOD COUNT 4.19 10^6/uL (4.00-5.40); WHITE BLOOD COUNT 8.2 10^3/uL (4.0-10.0)
[2019-03-15 16:13] LABS: INR 0.94; PROTHROMBIN TIME 12.7 SECONDS (12.1-14.4)
[2019-03-15 16:14] LABS: PARTIAL THROMBOPLASTIN TIME 28.7 SECONDS (25.4-37.6)
[2019-03-15 16:26] LABS: ALBUMIN 2.8 GM/DL (3.2-5.2); ALT/SGPT 17 U/L (12-78); BILIRUBIN,DIRECT < 0.1 MG/DL (0.0-0.2); BILIRUBIN,TOTAL 0.2 MG/DL (0.2-1.0); BLOOD UREA NITROGEN 8 MG/DL (7-18); CALCIUM LEVEL 8.6 MG/DL (8.5-10.1); CARBON DIOXIDE LEVEL 26 MEQ/L (21-32); CHLORIDE LEVEL 108 MEQ/L (98-107); CREATININE FOR GFR 0.62 MG/DL (0.55-1.30); GLOMERULAR FILTRATION RATE > 60.0 (>60); GLUCOSE, FASTING 80 MG/DL (70-100); MAGNESIUM LEVEL 2.2 MG/DL (1.8-2.4); POTASSIUM SERUM 3.9 MEQ/L (3.5-5.1); SODIUM LEVEL 140 MEQ/L (136-145); TOTAL PROTEIN 6.8 GM/DL (6.4-8.2); URIC ACID 5.1 MG/DL (2.6-6.0)
--- NOTE | 2019-03-15 16:27 | ECGEPIP ---
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
[2019-03-15] MEDS ORDERED: ISOVUE-370 76% 100ML VIAL (Q9967) As Ordered ONE (16:30)
[2019-03-15] MEDS ORDERED: LABETALOL HCL 100 MG/20 ML VIAL IV ONE (16:30)
--- NOTE | 2019-03-15 17:08 | REP ---
CT Head without contrast HISTORY: Preeclampsia COMPARISON: 01/03/2015 There is no intraparenchymal hemorrhage, acute infarct, mass or midline shift. The ventricular system is normal in appearance. There is no extra cerebral collection. There is no fracture. The visualized sinuses are clear. IMPRESSION: There is no intracranial lesion. Electronically Signed by Roland Lorenzo MD 03/15/2019 04:58 P
[2019-03-15] MEDS ORDERED: hydrALAZINE INJ 20 MG/ML VIAL IV STA (17:10)
--- NOTE | 2019-03-15 17:37 | REP ---
CT ABDOMEN AND PELVIS WITH IV CONTRAST: TECHNIQUE: Axial contrast enhanced images from the lung bases to the pubic symphysis using 100 mL Isovue 370 intravenous contrast material with multiplanar reformations. Visualized lung bases are clear. The uterus is markedly enlarged measuring 20.6 x 7.8 x 15.2 cm. The liver demonstrates no abnormality. The patient has had prior gastric surgery and a cholecystectomy. I see no biliary dilatation. The spleen, adrenals, pancreas and kidneys are unremarkable. There is no hydronephrosis. There is no abdominal aortic aneurysm. No bowel thickening is seen. The appendix is normal. Enlarged uterus compresses adjacent bowel particularly the sigmoid colon. Urinary bladder is unremarkable. There is mild diastasis of the rectus muscles. IMPRESSION: Markedly enlarged uterus. No free air or free fluid. No evidence of appendicitis or other acute finding. Electronically Signed by Gregory Moon MD 03/16/2019 04:29 P
[2019-03-15] MEDS ORDERED: KETOROLAC 30 MG/ML VIAL (J1885) IV ONE (18:30)
--- NOTE | 2019-03-15 18:50 | REPVR ---
EXAM: US Pelvis Complete, Transabdominal EXAM DATE/TIME: 03/15/2019 6:19 PM CLINICAL HISTORY: 34 years old, female; Signs and symptoms; Other: Vaginal bleeding / clots S/P vaginal 4 days ago; Additional info: Gave 4 days ago/passing large clots/r/o retained poc TECHNIQUE: Imaging protocol: Real-time transabdominal pelvic ultrasound with image documentation. Complete exam. COMPARISON: US PELVIC NON-OB COMPLETE 06/18/2018 11:15 PM FINDINGS: Uterus measures 20 x 7.5 x 12.4 cm in size. No focal uterine mass. Endometrial stripe appears heterogeneous, measuring 21 mm in thickness. No hypervascularity Right ovary measures 3.4 x 1.1 x 4.1 cm in size. No dominant mass or cyst. Left ovary measures 2.3 x 3.1 x 1.4 cm in size. No dominant mass or cyst. Doppler flow is documented in both ovaries. No abnormal volume of free fluid within the pelvis. IMPRESSION: uterus, with prominent heterogeneous endometrium measuring 2.1 cm. This may represent clot related to the recent . No endometrial hypervascularity to convincingly suggest retained products of conception. Followup is recommended Electronically signed by: Los Ferrer On 03/15/2019 18:50:05 PM
[2019-03-15] MEDS ORDERED: amLODIPine 10 MG TAB PO SCH (19:30)
[2019-03-15] MEDS ORDERED: amLODIPine 10 MG TAB PO ONE (19:30)
[2019-03-15] MEDS: ACETAMINOPHEN TAB 650MG DOSE (2X325MG) PO PRN (19:39)
[2019-03-15] MEDS: hydroCHLOROthiazide 12.5 MG CAPSULE PO SCH (19:39)
[2019-03-15] MEDS ORDERED: PREN1CHW6 PO (19:49)
[2019-03-15] MEDS ORDERED: APAP325T4 PO (19:49)
--- NOTE | 2019-03-15 20:40 | HPE ---
DATE OF ADMISSION: 03/15/2019 ATTENDING PHYSICIAN: Hany Mendez MD CHIEF COMPLAINT: Headache and high blood pressure. HISTORY OF PRESENT ILLNESS: The patient is 34-year-old white female presents to the ER for evaluation of headache as well as high blood pressure. History of provided by herself and she is a reliable historian. Per the patient she does not have history of high blood pressure in the past and also during her she did not have high blood pressure either. She stated her blood pressure went up to 150s two days prior to her delivery and meanwhile she developed headache and so she went to see her OB and she delivered the baby two days ago. However, after her delivery she still had headache as well as high blood pressure and that is why she was referred here for further evaluation. In the ER, her initial blood pressure was 197/95. She was given 10 mg IV hydralazine. After that her blood pressure went down to 157/90. However, later blood pressure went up again to 170/80. So medicine service was called for possible admission. Otherwise, her workup in the ER was not significant including head CT as well as abdominal CT. since she was complaining of some right upper quadrant abdominal pain. REVIEW OF SYSTEMS: Denies fever, no chills, positive headache, but no blurry vision. No shortness of breath, no chest pain, no coughing, no nausea, no vomiting. She does have pain in her right upper quadrant which is persistent and no radiation. The worse pain was 7/10 in severity. Nothing makes this pain better or worse. She does not have nausea, vomiting or diarrhea. No tingling, numbness, weakness of arms or lower extremities. All other systems reviewed, but negative. PAST MEDICAL HISTORY: Morbid obesity, which resolved after gastric bypass surgery. PAST SURGICAL HISTORY: Status post gastric bypass surgery in 2017. Status post cholecystectomy and bilateral knee repair. ALLERGIES: No known drug allergies. SOCIAL HISTORY: Denies alcohol use. Denies tobacco use. No illicit drug abuse. She is FULL CODE. She is with one child. She just delivered baby two days ago. FAMILY HISTORY: Her mother has history of high blood pressure, diabetes. MEDICATIONS: baby vitamins. PHYSICAL EXAMINATION: VITAL SIGNS: Temperature 99 and pulse 63, respiratory rate 20, blood pressure 170/102. Oxygen saturation 97% on room air. GENERAL: She is awake, alert, oriented times three. She is not in acute distress. HEENT: Atraumatic. Pupils equal, round and reactive to light. No jaundice. Extraocular muscles intact. Ears, nose, throat, mouth: Normal. Mucous not dry. Neck: No JVD. No bruits. LUNGS: Clear. No wheezing, no crackles. HEART: S1, S2, regular. No murmur. ABDOMEN: Bowel sounds positive, mild tenderness in the right upper quadrant. LOWER EXTREMITIES: No edema in bilateral lower extremities. NEUROLOGICAL: Nonfocal. SKIN: No rash. PSYCHOLOGICAL: No acute psychosis. DIAGNOSTICS AND LABS: CBC and differential showed WBC 8.2, hemoglobin and hematocrit 11.4/36.8, platelets 225. Sodium 140, potassium 3.9, chloride 108, bicarbonate 26, BUN 8, creatinine 0.6. Glucose 80. Head CT was negative. Abdominal CT was negative. Also pelvic ultrasound was negative. IMPRESSION: 1. Hypertension with headache. 2. Status post two days after delivery. PLAN: The patient will be admitted for observation. I will treat her with amlodipine, hydrochlorothiazide and she states she is not going to do breast feeding and she may have a temporary hypertension due to stress and will continue to monitor. She has right upper quadrant pain, however, as noted CT was negative and also her liver function test was normal. Maybe it is due to musculoskeletal pain. MTDD
[2019-03-15 22:00] VITALS: BP 132/79
[2019-03-16] VITALS (7 sets, daily range): BP systolic 116–138; BP diastolic 68–79
[2019-03-16] MEDS: ACETAMINOPHEN TAB 650MG DOSE (2X325MG) PO PRN ×2 (00:08→06:52)
[2019-03-16] MEDS ORDERED: IBUPROFEN 800 MG TAB PO ONE (00:30)
[2019-03-16 06:24] LABS: HEMATOCRIT 37.5 % (36.0-47.0); HEMOGLOBIN 11.4 g/dl (12.0-15.5); MEAN CORPUSCULAR HEMOGLOBIN 25.8 pg (27.0-33.0); MEAN CORPUSCULAR HGB CONC 30.4 g/dl (32.0-36.5); MEAN CORPUSCULAR VOLUME 84.8 fl (80.0-96.0); PLATELET COUNT, AUTOMATED 201 10^3/uL (150-450); RED BLOOD COUNT 4.42 10^6/uL (4.00-5.40); WHITE BLOOD COUNT 8.3 10^3/uL (4.0-10.0)
[2019-03-16 06:37] LABS: BLOOD UREA NITROGEN 8 MG/DL (7-18); CALCIUM LEVEL 9.7 MG/DL (8.5-10.1); CARBON DIOXIDE LEVEL 24 MEQ/L (21-32); CHLORIDE LEVEL 101 MEQ/L (98-107); CREATININE FOR GFR 0.62 MG/DL (0.55-1.30); GLOMERULAR FILTRATION RATE > 60.0 (>60); GLUCOSE, FASTING 73 MG/DL (70-100); POTASSIUM SERUM 3.4 MEQ/L (3.5-5.1); SODIUM LEVEL 136 MEQ/L (136-145)
[2019-03-16] MEDS ORDERED: amLODIPine 10 MG TAB PO SCH (09:00)
[2019-03-16] MEDS ORDERED: KETOROLAC 30 MG/ML VIAL (J1885) IV PRN (09:15)
[2019-03-16] MEDS: hydroCHLOROthiazide 12.5 MG CAPSULE PO SCH (09:41)
--- NOTE | 2019-03-16 09:59 | IPNPDOC ---
Subjective Date Seen The patient was seen on 03/16/19. Subjective Chief Complaint/HPI Complaining of severe headache 8 or 10, no photophobia, no syncope, no loss of vision. Patient had a epidural done during her delivery about 4 days ago General: Denies: ROS Unobtainable, Chills, Night Sweats, Fatigue, Malaise, Normal Appetite, Other Symptoms Constitutional: Denies: Chills, Fever, Malaise, Night Sweats, Weakness, Fatigue, Weight Loss, Lethargy, Other Eyes: Denies: Pain, Vision change, Conjunctivae inflammation, Eyelid inflammation, Redness, Other ENT: Denies: Head Aches, Ear Pain, Dysphagia, Sinus Congestion, Post Nasal Drip, Sore Throat, Epistaxis, Other Symptoms Skin: Denies: Rash, Lesions, Jaundice, Bruising, Itching, Dry, Breakdown, Nail Changes, Other Pulmonary: Denies: Dyspnea, Cough, Pleuritic Chest Pain, Other Symptoms Cardiovascular: Denies: Chest Pain, Palpitations, Orthopnea, Paroxysmal Noc. Dyspnea, Edema, Lt Headedness, Other Symptoms Gastrointestinal: Denies: Nausea, Vomiting, Abdominal Pain, Diarrhea, Constipation, Melena, Hematochezia, Other Symptoms Genitourinary: Denies: Dysuria, Frequency, Incontinence, Hematuria, Retention, Other Symptoms Hematologic: Denies: Bruising, Bleeding Excessively, Petecchia, Purpura, Enlarged Lymph Nodes, Other Hematologic Endocrine: Denies: Polydipsia, Polyphagia, Polyuria, Heat Intolerance, Cold Intolerance, Other Endocrine Sx Musculoskeletal: Denies: Neck Pain, Back Pain, Shoulder Pain, Arm Pain, Hand Pain, Leg Pain, Foot Pain, Joint Pain, Muscle Pain, Spasms, Other Symptoms Neurological: Reports: Other Symptoms (headache) Psych: Denies: Mood Normal, Anxiety, Depression, Memory Issues, Thoughts of Self Harm, Anger, Thoughts of Harming Other, Other Psych Objective Physical Examination General Exam: Positive: Alert, Cooperative, Mild Distress ENT Exam: Positive: Atraumatic, Mucous membr. moist/pink Neck Exam: Positive: Supple Chest Exam: Positive: Clear to auscultation, Normal air movement Heart Exam: Positive: Rate Normal, Normal S1, Normal S2 Abdomen Exam: Positive: Normal bowel sounds, Soft Neuro Exam: Positive: Normal Speech, Strength at 5/5 X4 ext, Cranial Nerves 3- 12 NL Psych Exam: Positive: Mental status NL, Mood NL, Oriented x 3 Assessment /Plan Problems (1) spinal headache Status: Acute Problem Text: Toradol 50 mg IM/IV every 6 hours when necessary for headache Close observation CT head on admission negative Most likely secondary to spinal procedure. During the epidural anesthesia Bed rest Intake of caffeine. Recommended (2) hypertension Status: Acute Problem Text: Under well control now Continue present medications Close monitoring and adjust doses of meds accordingly Plan/VTE VTE Prophylaxis Ordered?: No VTE Exclusion Mechanical Proph: Low Risk for VTE VS, I&O, 24H, Fishbone Vital Signs/I&O Vital Signs Date Time Temp Pulse Resp B/P (MAP) Pulse Ox O2 Delivery O2 Flow Rate FiO2 03/16/19 09:41 84 128/74 03/16/19 06:00 98.0 18 96 03/15/19 19:31 Room Air I&O- Last 24 Hours up to 6 AM 03/16/19 06:00 Intake Total 200 ml Output Total 1250 ml Balance -1050 ml Laboratory Data 24H LABS Laboratory Tests 2 03/15/19 15:51: Immature Granulocyte % (Auto) 0.4, White Blood Count 8.2, Red Blood Count 4.19, Hemoglobin 11.4L, Hematocrit 36.8, Mean Corpuscular Volume 87.8, Mean Corpuscular Hemoglobin 27.2, Mean Corpuscular Hemoglobin Concent 31.0L, Red Cell Distribution Width 19.3H, Platelet Count 225, Neutrophils (%) (Auto) 70.3H, Lymphocytes (%) (Auto) 23.9L, Monocytes (%) (Auto) 4.6, Eosinophils (%) (Auto) 0.7, Basophils (%) (Auto) 0.1, Neutrophils # (Auto) 5.8, Lymphocytes # (Auto) 2.0, Monocytes # (Auto) 0.4, Eosinophils # (Auto) 0.1, Basophils # (Auto) 0.0, Nucleated Red Blood Cells % (auto) 0.0, Prothrombin Time 12.7, Prothromb Time International Ratio 0.94, Activated Partial Thromboplast Time 28.7, Urine Color YELLOW, Urine Appearance HAZY, Urine pH 6.0, Urine Specific [place] 1.012, Urine Protein NEGATIVE, Urine Glucose (UA) NEGATIVE, Urine Ketones NEGATIVE, Urine Blood 3+H, Urine Nitrite NEGATIVE, Urine Bilirubin NEGATIVE, Urine Urobilinogen 0.2, Urine Leukocyte Esterase 1+H, Urine WBC (Auto) 11H, Urine RBC (Auto) TNTCH, Urine Hyaline Casts (Auto) 0, Urine Bacteria (Auto) NEGATIVE, Urine Squamous Epithelial Cells 0, Urine Sperm (Auto) , Anion Gap 6L, Glomerular Filtration Rate > 60.0, Uric Acid 5.1, Calcium Level 8.6, Magnesium Level 2.2, Aspartate Amino Transf (AST/SGOT) 25, Alanine Aminotransferase (ALT/SGPT) 17, Alkaline Phosphatase 117, Total Bilirubin 0.2, Direct Bilirubin < 0.1, Total Protein 6.8, Albumin 2.8L, Albumin/Globulin Ratio 0.70L 03/16/19 05:16: Nucleated Red Blood Cells % (auto) 0.0, Anion Gap 11, Glomerular Filtration Rate > 60.0, Calcium Level 9.7, Blood Urea Nitrogen 8, Creatinine 0.62, Sodium Level 136, Potassium Level 3.4L, Chloride Level 101, Carbon Dioxide Level 24 CBC/BMP Laboratory Tests 03/15/19 15:51 Red Blood Count 4.19, Mean Corpuscular Volume 87.8, Mean Corpuscular Hemoglobin 27.2, Mean Corpuscular Hemoglobin Concent 31.0 L, Red Cell Distribution Width 19.3 H, Neutrophils (%) (Auto) 70.3 H, Lymphocytes (%) (Auto) 23.9 L, Monocytes (%) (Auto) 4.6, Eosinophils (%) (Auto) 0.7, Basophils (%) (Auto) 0.1, Neutrophils # (Auto) 5.8, Lymphocytes # (Auto) 2.0, Monocytes # (Auto) 0.4, Eosi nophils # (Auto) 0.1, Basophils # (Auto) 0.0 03/16/19 05:16 Red Blood Count 4.42, Mean Corpuscular Volume 84.8, Mean Corpuscular Hemoglobin 25.8 L, Mean Corpuscular Hemoglobin Concent 30.4 L, Red Cell Distribution Width 19.3 H, Calcium Level 9.7 Microbiology Microbiology 03/15/19 Urine Culture, Received Pending INOCENCIA FOREMAN MD Mar 16, 2019 09:59
[2019-03-16] MEDS ORDERED: POTASSIUM CHLORIDE 10 MEQ SR TABLET PO ONE (10:00)
[2019-03-16] MEDS ORDERED: KETO10TAB PO (11:51)
[2019-03-16] MEDS ORDERED: HYDR12CA PO (11:51)
[2019-03-16] MEDS ORDERED: AMLO10TA5 PO (11:51)
--- NOTE | 2019-03-16 13:18 | DSES ---
DATE OF ADMISSION: 03/15/2019 DATE OF DISCHARGE: 03/16/2019 PRIMARY CARE PROVIDER: Teresa Bass HISTORY: This is a 34-year-old female patient who presents to [facility] emergency room with elevated blood pressure and a headache. She delivered a baby, vaginal delivery, on 03/11/2019. She had developed a headache prior to her delivery, as well as high blood pressure, although this did improve prior to her discharge from the hospital. At home, she noticed that her blood pressure was elevated, prompting her to return to the hospital. She was admitted for hypertension, as well as a headache associated with and recent epidural associated with vaginal delivery. During her hospitalization, she has remained medically stable. She was started on hydrochlorothiazide, as well as amlodipine. Her blood pressures have improved. Her blood pressure this morning was 116/68. Her headache has also improved with the use of acetaminophen. She has received one dose of IV Toradol since her hospitalization, 15 mg. She is eager to return home. We talked about the risk associated with headache after epidural. We also talked about management of this, including rest, caffeine, encouraged hydration. She will continue her medications at home. I will send her home with Toradol to be administered orally as needed. She is aware of the risks and benefits associated with these medications. During her hospitalization, she also underwent ultrasound of the pelvis, which was significant for uterus with prominent heterogeneous endometrium measuring 2.1 cm, suggestive of the potential for clot related to her recent . She will need followup with her electric motor controls assembler as an outpatient. I did discuss this with her. She followed with Dr. Guajardo and his staff, although she delivered the baby at [place]. Her hemoglobin has remained stable during her hospitalization. She reports improvement in her vaginal discharge , stating that she has had minimal bloody discharge, aside from having a large clot that passed prior to the ultrasound being performed. DISCHARGE DIAGNOSES: 1. spinal headache. 2. hypertension. DISCHARGE MEDICATIONS: - amlodipine 10 mg daily - hydrochlorothiazide 12.5 mg daily - Toradol 10 mg by mouth every 6 hours as needed for headache DISCHARGE PLAN: Followup with Teresa Bass in 5 to 7 days. Followup with her electric motor controls assembler in 5 to 7 days. Activity should be as tolerated. Diet is regular. edited: 03/17/2019 0722 tkf MTDJulio C
== END 2019-03-16 14:06 | disposition home or self-care (01) ==
LOC: M ED 14:33 → M ED INP 19:28 → M MSPAV 21:59
PROVIDERS: ADMIT Hospitalist; ATTEND Internal Medicine
DX: O89.4 Spinal and epidural anesthesia-induced headache during the puerperium (principal); O99.89 Other specified diseases and conditions complicating pregnancy, childbirth and the puerperium; O13.5 Gestational [pregnancy-induced] hypertension without significant proteinuria, complicating the puerperium
CPT/HCPCS: 36415; 70450; 74177; 76856; 80048; 80076; 81001; 83735; 84550; 85025; 85027; 85610; 85730; 87086; 93005; 93976; 96374; 96375; 96376; 99285; J1885; Q9967

== ENCOUNTER → 2019-03-24 | Outpatient (REF) | payer OTHER ==
[~2019-03-24] MED LIST changes: +AMLO10TA5 PO; +APAP325T4 PO; +FERR325T3 PO; +HYDR12CA PO; +KETO10TAB PO; +PREN1CHW6 PO
[2019-03-24 16:50] LABS: BLOOD UREA NITROGEN 23 MG/DL (7-18); CALCIUM LEVEL 9.3 MG/DL (8.5-10.1); CARBON DIOXIDE LEVEL 26 MEQ/L (21-32); CHLORIDE LEVEL 101 MEQ/L (98-107); GLOMERULAR FILTRATION RATE > 60.0 (>60); GLUCOSE, FASTING 82 MG/DL (70-100); POTASSIUM SERUM 3.7 MEQ/L (3.5-5.1); SODIUM LEVEL 138 MEQ/L (136-145)
== END ==
LOC: M SFHCPLAZ 14:01
PROVIDERS: ATTEND Nurse Practitioner Family
DX: I10 Essential (primary) hypertension (principal)

== ENCOUNTER 2019-04-11 18:01 | Emergency (ER) | payer OTHER ==
[~2019-04-11] VITALS: Ht 157.5 cm; Wt 68.2 kg
[~2019-04-11 18:01] MED LIST changes: -DULO1CAP2 PO; -DULO1CAP3 PO; +DULO1CAP5 PO; +DULO1CAP6 PO
[2019-04-11 19:15] LABS: BASO % 0.2 % (0.0-1.0); HEMATOCRIT 40.1 % (36.0-47.0); HEMOGLOBIN 12.7 g/dl (12.0-15.5); LYMPH # 1.1 10^3/uL (1.5-4.5); LYMPH % 26.2 % (24.0-44.0); MEAN CORPUSCULAR HEMOGLOBIN 27.7 pg (27.0-33.0); MEAN CORPUSCULAR HGB CONC 31.7 g/dl (32.0-36.5); MEAN CORPUSCULAR VOLUME 87.6 fl (80.0-96.0); MONO # 0.3 10^3/uL (0.0-0.8); MONO % 7.2 % (0.0-5.0); NEUTROPHILS # 2.7 10^3/uL (1.8-7.7); NEUTROPHILS % 65.9 % (36.0-66.0); PLATELET COUNT, AUTOMATED 153 10^3/uL (150-450); RED BLOOD COUNT 4.58 10^6/uL (4.00-5.40)
[2019-04-11 19:29] LABS: ALBUMIN 3.5 GM/DL (3.2-5.2); ALT/SGPT 21 U/L (12-78); BILIRUBIN,DIRECT 0.1 MG/DL (0.0-0.2); BILIRUBIN,TOTAL 0.3 MG/DL (0.2-1.0); BLOOD UREA NITROGEN 9 MG/DL (7-18); CALCIUM LEVEL 8.7 MG/DL (8.5-10.1); CARBON DIOXIDE LEVEL 24 MEQ/L (21-32); CHLORIDE LEVEL 107 MEQ/L (98-107); CREATININE FOR GFR 0.85 MG/DL (0.55-1.30); GLOMERULAR FILTRATION RATE > 60.0 (>60); GLUCOSE, FASTING 90 MG/DL (70-100); LIPASE 98 U/L (73-393); POTASSIUM SERUM 3.3 MEQ/L (3.5-5.1); SODIUM LEVEL 139 MEQ/L (136-145)
[2019-04-11 19:33] LABS: HCG, SERUM QUALITATIVE NEGATIVE (NEGATIVE)
[2019-04-11] MEDS ORDERED: KETOROLAC TROMETHAMINE 10 MG TAB PO ONE (21:15)
--- NOTE | 2019-04-11 22:42 | REPVR ---
EXAM: CT Abdomen and Pelvis Without Contrast EXAM DATE/TIME: 04/11/2019 9:42 PM CLINICAL HISTORY: 34 years old, female; Abdominal pain; Flank; Right; Prior surgery; Additional info: RO kidney stone TECHNIQUE: Imaging protocol: Axial computed tomography images of the abdomen and pelvis without contrast. Coronal and sagittal reformatted images were created and reviewed. Radiation optimization: All CT scans at this facility use at least one of these dose optimization techniques: automated exposure control; mA and/or kV adjustment per patient size (includes targeted exams where dose is matched to clinical indication); or iterative reconstruction. COMPARISON: CT ABD/PEL W/IV CONTRAST ONLY 03/15/2019 4:31 PM FINDINGS: Liver: Normal. No mass. Gallbladder and bile ducts: There has been a cholecystectomy. Pancreas: Normal. No ductal dilation. Spleen: There is moderate splenomegaly with a maximum span of 15.6 centimeters. No focal abnormalities demonstrated. Adrenals: Normal. No mass. Kidneys and ureters: Multiple bilateral non obstructing renal calculi are demonstrated measuring up to 3 mm in the left kidney. Stomach and bowel: This patient is status post gastric bypass surgery. Appendix: No evidence of appendicitis. Intraperitoneal space: Normal. No free air. No significant fluid collection. Vasculature: Normal. No abdominal aortic aneurysm. Lymph nodes: Normal. No enlarged lymph nodes. Bladder: Unremarkable as visualized. Reproductive: Unremarkable as visualized. Bones/joints: No acute fracture. No dislocation. Soft tissues: Unremarkable. IMPRESSION: 1. This patient is status post gastric bypass surgery. 2. There is moderate splenomegaly with a maximum span of 15.6 centimeters. No focal abnormalities demonstrated. 3. There has been a cholecystectomy. 4. Multiple bilateral non obstructing renal calculi are demonstrated measuring up to 3 mm in the left kidney. Electronically signed by: Kenyon Morris On 04/11/2019 22:42:04 PM
--- NOTE | 2019-04-11 22:44 | REPVR ---
EXAM: US Pelvis Complete, Transabdominal EXAM DATE/TIME: 04/11/2019 10:05 PM CLINICAL HISTORY: 34 years old, female; Pelvic pain; Additional info: RO ovarian cyst right side TECHNIQUE: Imaging protocol: Real-time transabdominal pelvic ultrasound with image documentation. Complete exam. COMPARISON: US ORIENTAL RUG REPAIRER 03/15/2019 6:03 PM FINDINGS: Uterus/cervix: Uterus measures 12.2 x 5.4 x 7 cm. Endometrial echocomplex measures 15.7 mm. Findings consistent with recent status. Right adnexa: Right ovary measures 2.6 x 1.5 x 1.7 cm. Resistive index measures 0.68 Left adnexa: Left ovary measures 3.4 x 2.5 x 3.2 cm. Resistive index measures 0.57 Free fluid: None. Bladder: Unremarkable bladder IMPRESSION: No acute findings. Thickened endometrial echo complex consistent with recent status. Electronically signed by: Kenyon Morris On 04/11/2019 22:43:45 PM
[2019-04-11 22:59] VITALS: BP 101/59
[2019-04-11 23:14] LABS: MONO SCRN NEGATIVE (NEGATIVE)
[2019-04-11] MEDS ORDERED: FLOM0.4C39 PO (23:21)
[2019-04-11] MEDS ORDERED: MACR100C43 PO (23:21)
--- NOTE | 2019-04-13 13:37 | ED PDOC ---
Post-Departure Follow-Up jonas reid faxed formal report of ct abd/p for fu Sarai Pace MD Apr 13, 2019 13:37
[2019-04-14 00:07] LABS: EBV AB TO NUCLEAR ANTIGEN >600.0 U/mL (0.0-17.9); EBV VIRAL CAPSID AG IgM <36.0 U/mL (0.0-35.9)
== END 2019-04-11 23:29 | disposition home or self-care (01) ==
LOC: M ED 18:01
DX: N20.0 Calculus of kidney (principal); R16.1 Splenomegaly, not elsewhere classified; I10 Essential (primary) hypertension; G43.909 Migraine, unspecified, not intractable, without status migrainosus; Z98.84 Bariatric surgery status; Z79.899 Other long term (current) drug therapy

== ENCOUNTER 2019-04-13 22:04 | Emergency (ER) | payer OTHER ==
[~2019-04-13] VITALS: Ht 157.5 cm; Wt 69.1 kg
[~2019-04-13 22:04] MED LIST changes: +FLOM0.4C39 PO
[2019-04-13 22:56] LABS: BASO % 0.2 % (0.0-1.0); HEMATOCRIT 35.3 % (36.0-47.0); HEMOGLOBIN 11.4 g/dl (12.0-15.5); LYMPH # 0.9 10^3/uL (1.5-4.5); LYMPH % 19.9 % (24.0-44.0); MEAN CORPUSCULAR HGB CONC 32.3 g/dl (32.0-36.5); MEAN CORPUSCULAR VOLUME 83.5 fl (80.0-96.0); MONO # 0.3 10^3/uL (0.0-0.8); MONO % 6.8 % (0.0-5.0); NEUTROPHILS # 3.3 10^3/uL (1.8-7.7); NEUTROPHILS % 72.9 % (36.0-66.0); PLATELET COUNT, AUTOMATED 129 10^3/uL (150-450); RED BLOOD COUNT 4.23 10^6/uL (4.00-5.40); WHITE BLOOD COUNT 4.6 10^3/uL (4.0-10.0)
[2019-04-13 23:26] LABS: ALBUMIN 3.1 GM/DL (3.2-5.2); ALT/SGPT 29 U/L (12-78); BILIRUBIN,DIRECT 0.1 MG/DL (0.0-0.2); BILIRUBIN,TOTAL 0.3 MG/DL (0.2-1.0); BLOOD UREA NITROGEN 10 MG/DL (7-18); CALCIUM LEVEL 7.8 MG/DL (8.5-10.1); CARBON DIOXIDE LEVEL 19 MEQ/L (21-32); CHLORIDE LEVEL 110 MEQ/L (98-107); CREATININE FOR GFR 0.78 MG/DL (0.55-1.30); GLOMERULAR FILTRATION RATE > 60.0 (>60); GLUCOSE, FASTING 101 MG/DL (70-100); POTASSIUM SERUM 3.2 MEQ/L (3.5-5.1); SODIUM LEVEL 140 MEQ/L (136-145); TOTAL PROTEIN 6.8 GM/DL (6.4-8.2)
[2019-04-13] MEDS ORDERED: NS 1,000 ML IV ONE (23:30)
[2019-04-13] MEDS ORDERED: DOXYCYCLINE HYCLATE 100 MG TAB PO ONE (23:30)
[2019-04-13] MEDS ORDERED: METOCLOPRAMIDE INJ 10MG/2ML VIAL (J2765) IV ONE (23:30)
[2019-04-13] MEDS ORDERED: KETOROLAC 30 MG/ML VIAL (J1885) IV ONE (23:30)
[2019-04-14 01:16] VITALS: BP 103/59
[2019-04-14] MEDS ORDERED: POTASSIUM CHLORIDE 10 MEQ SR TABLET PO ONE (01:45)
[2019-04-14] MEDS ORDERED: DOXY100C37 PO (02:07)
== END 2019-04-14 02:16 | disposition home or self-care (01) ==
LOC: M ED 22:04
DX: A69.20 Lyme disease, unspecified (principal); R21 Rash and other nonspecific skin eruption; E86.0 Dehydration; R50.9 Fever, unspecified; M79.10 Myalgia, unspecified site; I10 Essential (primary) hypertension; J45.909 Unspecified asthma, uncomplicated; Z87.442 Personal history of urinary calculi; Z79.899 Other long term (current) drug therapy
CPT/HCPCS: 80048; 80076; 81001; 83605; 85025; 87040; 87086; 96361; 96374; 96375; 99284; J1885; J2765

== ENCOUNTER 2019-06-02 18:31 | Emergency (ER) | payer OTHER ==
[~2019-06-02] VITALS: Ht 157.5 cm; Wt 64.3 kg
[~2019-06-02 18:31] MED LIST changes: +DOXY100C37 PO
[2019-06-02] MEDS ORDERED: TOPA50TA8 PO (18:36)
[2019-06-02] MEDS ORDERED: PANTOPRAZOLE 40MG INJ (PROTONIX) (C9113) IV ONE (19:15)
[2019-06-02] MEDS ORDERED: GI COCKTAIL 50ML BTL(HYOSCYAMINE/MAALOX/LIDOCAINE VISCOUS)(1:3:1) PO ONE (19:15)
[2019-06-02] MEDS: GASTROGRAFIN SOLUTION 30ML PO SCH ×2 (19:35→20:21)
[2019-06-02 19:38] LABS: BASO % 0.4 % (0.0-1.0); EOS # 0.1 10^3/uL (0.0-0.50); EOS % 1.4 % (0.0-3.0); HEMATOCRIT 37.8 % (36.0-47.0); HEMOGLOBIN 12.3 g/dl (12.0-15.5); LYMPH # 2.6 10^3/uL (1.5-4.5); LYMPH % 50.2 % (24.0-44.0); MEAN CORPUSCULAR HEMOGLOBIN 29.8 pg (27.0-33.0); MEAN CORPUSCULAR HGB CONC 32.5 g/dl (32.0-36.5); MEAN CORPUSCULAR VOLUME 91.5 fl (80.0-96.0); MONO # 0.4 10^3/uL (0.0-0.8); MONO % 6.8 % (0.0-5.0); NEUTROPHILS # 2.1 10^3/uL (1.8-7.7); PLATELET COUNT, AUTOMATED 242 10^3/uL (150-450); RED BLOOD COUNT 4.13 10^6/uL (4.00-5.40); WHITE BLOOD COUNT 5.2 10^3/uL (4.0-10.0)
[2019-06-02 19:40] LABS: ALBUMIN 3.9 GM/DL (3.2-5.2); ALT/SGPT 21 U/L (12-78); BILIRUBIN,DIRECT < 0.1 MG/DL (0.0-0.2); BILIRUBIN,TOTAL 0.3 MG/DL (0.2-1.0); BLOOD UREA NITROGEN 17 MG/DL (7-18); CALCIUM LEVEL 8.6 MG/DL (8.5-10.1); CARBON DIOXIDE LEVEL 25 MEQ/L (21-32); CHLORIDE LEVEL 112 MEQ/L (98-107); CREATININE FOR GFR 0.71 MG/DL (0.55-1.30); GLOMERULAR FILTRATION RATE > 60.0 (>60); GLUCOSE, FASTING 94 MG/DL (70-100); LIPASE 181 U/L (73-393); POTASSIUM SERUM 3.9 MEQ/L (3.5-5.1); SODIUM LEVEL 141 MEQ/L (136-145); TOTAL PROTEIN 6.9 GM/DL (6.4-8.2)
[2019-06-02] MEDS ORDERED: ISOVUE-370 76% 100ML VIAL (Q9967) As Ordered ONE (20:58)
--- NOTE | 2019-06-02 22:39 | REPVR ---
EXAM: CT Abdomen and Pelvis With Contrast EXAM DATE/TIME: 06/02/2019 9:33 PM CLINICAL HISTORY: 34 years old, female; Abdominal pain; Epigastric; Additional info: Epigastric pain; HX of gastric bypass; R/O perforation TECHNIQUE: Imaging protocol: Computed tomography of the abdomen and pelvis with intravenous contrast. Radiation optimization: All CT scans at this facility use at least one of these dose optimization techniques: automated exposure control; mA and/or kV adjustment per patient size (includes targeted exams where dose is matched to clinical indication); or iterative reconstruction. Contrast material: ISOVUE 370; Contrast volume: 100 ml; Contrast route: IV; COMPARISON: CT ABD/PEL W/IV CONTRAST ONLY 03/15/2019 4:31 PM FINDINGS: Liver: Normal. No mass. Gallbladder and bile ducts: Status post cholecystectomy. Pancreas: Normal. No ductal dilation. Spleen: Normal. No splenomegaly. Adrenals: Normal. No mass. Kidneys and ureters: Small nonobstructing bilateral renal calculi. Stomach and bowel: Status post gastric bypass with collapse of the bypassed stomach. Appendix: A normal retrocecal appendix is seen. Intraperitoneal space: No free air. Trace free fluid in cul-de-sac which is physiologic. Vasculature: Normal. No abdominal aortic aneurysm. Lymph nodes: Normal. No enlarged lymph nodes. Bladder: Unremarkable as visualized. Reproductive: Mildly prominent left gonadal vein measuring 9 mm with early enhancement and some left adnexal venous varicosities. Bones/joints: No acute fracture. No dislocation. Soft tissues: Unremarkable. IMPRESSION: 1. There has been little change from 04/11/2019. 2. Status post cholecystectomy and gastric bypass. No evidence of perforation. 3. Small nonobstructing bilateral renal calculi. Electronically signed by: Cale Hayden On 06/02/2019 22:39:18 PM
[2019-06-02] MEDS ORDERED: SUCR1SS PO (22:46)
[2019-06-02] MEDS ORDERED: OMEP40CA2 PO (22:46)
[2019-06-02 22:57] VITALS: BP 113/65
== END 2019-06-02 23:03 | disposition home or self-care (01) ==
LOC: M ED 18:31
DX: K29.70 Gastritis, unspecified, without bleeding (principal); I10 Essential (primary) hypertension; G43.909 Migraine, unspecified, not intractable, without status migrainosus; Z87.442 Personal history of urinary calculi; Z98.84 Bariatric surgery status; Z79.899 Other long term (current) drug therapy
CPT/HCPCS: 36415; 74177; 80048; 80076; 81001; 83690; 84702; 85025; 96374; 99284; C9113; Q9963; Q9967

== ENCOUNTER 2019-09-02 20:05 | Emergency (ER) | payer OTHER ==
[~2019-09-02] VITALS: Ht 157.5 cm; Wt 62.2 kg
[~2019-09-02 20:05] MED LIST changes: +OMEP40CA97 PO; +SUCR1SS PO; +TOPA50TA8 PO
[2019-09-02] MEDS ORDERED: METOPROLOL 5 MG/5 ML VIAL IV STA (21:40)
[2019-09-02 21:52] VITALS: BP 108/62
== END 2019-09-02 21:53 | disposition home or self-care (01) ==
LOC: M ED 20:05
DX: O99.89 Other specified diseases and conditions complicating pregnancy, childbirth and the puerperium (principal); T58.91XA Toxic effect of carbon monoxide from unspecified source, accidental (unintentional), initial encounter; J45.909 Unspecified asthma, uncomplicated; Z3A.00 Weeks of gestation of pregnancy not specified; Z98.0 Intestinal bypass and anastomosis status

== ENCOUNTER → 2019-09-06 | Outpatient (CLI) | payer OTHER | LOC: M PLALAB 15:44 | PROVIDERS: ATTEND Advanced Practice Midwife | DX: O36.80X0 Pregnancy with inconclusive fetal viability, not applicable or unspecified (principal) ==

== ENCOUNTER → 2019-09-11 | Outpatient (CLI) | payer OTHER ==
--- NOTE | 2019-09-11 15:56 | REP ---
REASON: Supervision of normal . Multiple ultrasonographic images of the uterus show an anechoic structure within the endometrial cavity with increased echoes surrounding it consistent with a decidual reaction. Within the gestational sac there is echogenic material consistent with a pole the mean crown-rump length measurement of which is consistent with a 10 week 6 day gestational age. Based on that the estimated date of delivery is 04/06/2020. Doppler interrogation of the heart shows a heart rate of 175 beats per minute. The maternal cervix measures 3.9 cm in length and is closed. No chorionic or subchorionic abnormality was noted. No gross abnormalities were seen in the maternal adnexal spaces. There is a right sided corpus luteum cyst. IMPRESSION: Early OB ultrasound as described above. Electronically Signed by Tesfaye Swanson DO 09/11/2019 04:26 P
== END ==
LOC: M LRY 13:41
PROVIDERS: ATTEND Advanced Practice Midwife
DX: O36.80X0 Pregnancy with inconclusive fetal viability, not applicable or unspecified (principal); Z3A.10 10 weeks gestation of pregnancy

== ENCOUNTER → 2019-09-28 | Outpatient (CLI) | payer OTHER, MEDICAID ==
[2019-09-28 19:33] LABS: BASO % 0.3 % (0.0-1.0); EOS # 0.1 10^3/uL (0.0-0.5); EOS % 0.8 % (0.0-3.0); HEMATOCRIT 36.7 % (36.0-47.0); HEMOGLOBIN 11.2 g/dl (12.0-15.5); LYMPH # 2.9 10^3/uL (1.5-5.0); LYMPH % 36.4 % (24.0-44.0); MEAN CORPUSCULAR HEMOGLOBIN 26.8 pg (27.0-33.0); MEAN CORPUSCULAR HGB CONC 30.5 g/dl (32.0-36.5); MEAN CORPUSCULAR VOLUME 87.8 fl (80.0-96.0); MONO # 0.4 10^3/uL (0.0-0.8); NEUTROPHILS # 4.5 10^3/uL (1.5-8.5); NEUTROPHILS % 57.2 % (36.0-66.0); PLATELET COUNT, AUTOMATED 278 10^3/uL (150-450); RED BLOOD COUNT 4.18 10^6/uL (4.00-5.40); WHITE BLOOD COUNT 7.8 10^3/uL (4.0-10.0)
[2019-09-28 19:43] LABS: HEMOGLOBIN A1c 5.4 %
[2019-09-28 19:50] LABS: CREATININE,RANDOM URINE 30.2 MG/DL; TOTAL PROTEIN,RANDOM URINE < 5.0 MG/DL (0.0-12.0)
[2019-09-28 20:26] LABS: ALT/SGPT 19 U/L (12-78); BILIRUBIN,TOTAL 0.2 MG/DL (0.2-1.0); CREATININE FOR GFR 0.56 MG/DL (0.55-1.30); GLOMERULAR FILTRATION RATE > 60.0 (>60); LDH LACTATE DEHYDROGENASE 160 U/L (84-246); URIC ACID 2.1 MG/DL (2.6-6.0)
[2019-09-28 21:57] LABS: CHLAMYDIA DNA AMPLIFICATION NEGATIVE (NEGATIVE); GC DNA AMPLIFICATION NEGATIVE (NEGATIVE)
[2019-09-29 10:54] LABS: RUBELLA IgG QUALITATIVE IMMUNE (IMMUNE)
[2019-09-29 11:23] LABS: HEPATITIS C VIRUS ABY INDEX 0.2 INDEX (<0.8)
[2019-09-29 12:46] LABS: HIV 1&2 SCREEN CENTAUR NEGATIVE (NEGATIVE)
== END ==
LOC: M PLALAB 14:49
PROVIDERS: ATTEND Obstetrics & Gynecology
DX: O99.841 Bariatric surgery status complicating pregnancy, first trimester (principal); O09.299 Supervision of pregnancy with other poor reproductive or obstetric history, unspecified trimester

== ENCOUNTER → 2019-10-26 | Outpatient (REF) | payer OTHER, MEDICAID | LOC: M SFHCWAGY 09:57 | PROVIDERS: ATTEND Advanced Practice Midwife | DX: O09.522 Supervision of elderly multigravida, second trimester (principal); Z3A.00 Weeks of gestation of pregnancy not specified ==

== ENCOUNTER → 2019-11-08 | Outpatient (CLI) | payer OTHER, MEDICAID ==
--- NOTE | 2019-11-09 13:45 | REP ---
Clinical: Anatomical evaluation. Comparison: 09/11/2019 . Findings: Examination demonstrates a single live intrauterine in variable presentation. motion is identified by technologist. Placenta is noted posterior/fundal and grade zero without evidence for placenta previa or abruption. Amniotic fluid volume is normal. Cervix measures 4.2 cm in length and appears closed. Nuchal cord noted. Gestational age by LMP 18 weeks 5 days with FAMILIA 04/05/2020 . Gestational age by current measurements 19 weeks 0 days with FAMILIA 04/03/2020 . FHR equals 160 beats per minute. Estimated weight 276 grams ( 67 percentile). Anatomical assessment demonstrates normal structures including cranium, choroid plexus, cavum, cerebellum/posterior fossa, lungs, four-chamber heart/ventricular outflow tracts, diaphragm, stomach, cord insertion/three-vessel cord, kidneys/bladder, and extremities. Limited evaluation of the facial features and spine repositioning. Impression: 1. Single live intrauterine in variable presentation. 2. Nuchal cord noted. 3. Limited evaluation of the facial features and spine may warrant reevaluation and follow-up. Electronically Signed by Shaun Godinez MD 11/09/2019 01:36 P
== END ==
LOC: M LRY 13:47
PROVIDERS: ATTEND Advanced Practice Midwife
DX: O09.522 Supervision of elderly multigravida, second trimester (principal)

== ENCOUNTER → 2019-12-22 | Outpatient (CLI) | payer OTHER, MEDICAID ==
[~2019-12-22] MED LIST changes: -FLUO20CA19 PO; +FLUO20CA22 PO
--- NOTE | 2019-12-22 16:44 | REP ---
Clinical: Anatomical evaluation. Comparison: 11/08/2019 . Findings: Examination demonstrates a single live intrauterine in cephalic presentation. motion is identified by technologist. Placenta is noted posterior/fundal and grade zero without evidence for placenta previa or abruption. Amniotic fluid volume is normal. Cervix measures 4.1 cm in length and appears closed. Nuchal cord noted. Gestational age by LMP 24 weeks 6 days with FAMILIA 04/06/2020 . Gestational age by current measurements 24 weeks 2 days with FAMILIA 04/10/2020 . FHR equals 131 beats per minute. Estimated weight 729 grams ( 40th percentile). Anatomical assessment demonstrates normal structures including cranium, choroid plexus, cavum, cerebellum/posterior fossa, facial features, lungs, four-chamber heart/left ventricular outflow tract, diaphragm, stomach, cord insertion/three-vessel cord, kidneys/bladder, spine, and extremities. Impression: 1. Single live intrauterine in cephalic presentation demonstrating appropriate interval growth. In conjunction with prior examination anatomical assessment is complete and normal. 2. Nuchal cord suggested . Electronically Signed by Shaun Godinez MD 12/22/2019 04:35 P
== END ==
LOC: M LRY 13:59
PROVIDERS: ATTEND Advanced Practice Midwife
DX: Z34.82 Encounter for supervision of other normal pregnancy, second trimester (principal); Z36.89 Encounter for other specified antenatal screening; Z3A.24 24 weeks gestation of pregnancy

== ENCOUNTER → 2019-12-29 | Outpatient (REF) | payer MEDICAID, OTHER ==
[2019-12-29 17:32] LABS: HEMATOCRIT 29.1 % (36.0-47.0); HEMOGLOBIN 8.7 g/dl (12.0-15.5); MEAN CORPUSCULAR HGB CONC 29.9 g/dl (32.0-36.5); MEAN CORPUSCULAR VOLUME 83.6 fl (80.0-96.0); PLATELET COUNT, AUTOMATED 235 10^3/uL (150-450); RED BLOOD COUNT 3.48 10^6/uL (4.00-5.40); WHITE BLOOD COUNT 6.9 10^3/uL (4.0-10.0)
== END ==
LOC: M PLALAB 15:46
PROVIDERS: ATTEND Specialist
DX: Z36.89 Encounter for other specified antenatal screening (principal); Z3A.00 Weeks of gestation of pregnancy not specified

== ENCOUNTER → 2020-02-19 | Outpatient (CLI) | payer OTHER ==
--- NOTE | 2020-02-20 02:29 | REP ---
Clinical: Growth evaluation. Comparison: 12/22/2019 . Findings: Examination demonstrates a single live intrauterine in cephalic presentation. motion is identified by technologist. Placenta is noted posterior fundal and grade I without evidence for placenta previa or abruption. Amniotic fluid volume is normal. Cervix measures 4.1 cm in length and appears closed. No evidence for nuchal cord. Gestational age by LMP 33 weeks 2 days with FAMILIA 04/06/2020 . Gestational age by current measurements 32 weeks 4 days with FAMILIA 04/11/2020 . FHR equals 142 beats per minute. Amniotic fluid index: 16.1 cm Estimated weight by current biometrical measurements 2112 grams ( 40th percentile). Impression: Single live intrauterine in cephalic presentation demonstrating appropriate interval growth.
== END ==
LOC: M WHC 10:26
PROVIDERS: ATTEND Advanced Practice Midwife
DX: O99.843 Bariatric surgery status complicating pregnancy, third trimester (principal); Z3A.33 33 weeks gestation of pregnancy

== ENCOUNTER → 2020-02-23 | Outpatient (REF) | payer OTHER ==
[2020-02-23 17:06] LABS: CALCIUM LEVEL 8.3 MG/DL (8.5-10.1)
[2020-02-23 17:22] LABS: FOLATE > 24.0 NG/ML (>5.4); VITAMIN B12 LEVEL 264 PG/ML (247-911)
== END ==
LOC: M PLALAB 15:39
PROVIDERS: ATTEND Advanced Practice Midwife
DX: O99.843 Bariatric surgery status complicating pregnancy, third trimester (principal)

== ENCOUNTER → 2020-03-11 | Outpatient (REF) | payer OTHER | LOC: M SFHCWAGY 17:31 | PROVIDERS: ATTEND Obstetrics & Gynecology | DX: Z3A.36 36 weeks gestation of pregnancy (principal) ==

== ENCOUNTER → 2020-03-19 | Outpatient (CLI) | payer OTHER ==
--- NOTE | 2020-03-19 17:27 | REP ---
Clinical: Anatomical evaluation. Comparison: 02/19/2020 . Findings: Examination demonstrates a single live intrauterine in cephalic / oblique presentation. motion is identified by technologist. Placenta is noted posterior fundal and grade I I without evidence for placenta previa or abruption. Amniotic fluid volume is normal. Cervix measures 3.1 cm in length and appears closed. No evidence for nuchal cord. Gestational age by LMP 37 weeks 3 days with FAMILIA 04/06/2020 . Gestational age by current measurements 35 weeks 2 days with FAMILIA 04/21/2020 . FHR equals 163 beats per minute. Amniotic fluid volume: 14.3 cm Estimated weight by current biometrical measurements 3518 grams ( 74th percentile based on age by LMP and first ultrasound). Anatomical assessment demonstrates mildly prominent gastric bubble which may warrant follow-up examination. Remainder of the anatomical assessment is grossly unremarkable. Impression: 1. Single live intrauterine in cephalic / oblique presentation demonstrating relatively appropriate interval growth. 2. Mildly prominent stomach bubble may warrant followup ultrasound examination.
== END ==
LOC: M WHC 14:26
PROVIDERS: ATTEND Advanced Practice Midwife
DX: O99.843 Bariatric surgery status complicating pregnancy, third trimester (principal); Z3A.37 37 weeks gestation of pregnancy; O28.3 Abnormal ultrasonic finding on antenatal screening of mother

== ENCOUNTER 2020-04-05 20:26 | Inpatient (IN) | payer OTHER ==
[2020-04-05] VITALS (7 sets, daily range): BP systolic 124–149; BP diastolic 66–85
[~2020-04-05] VITALS: Ht 157.5 cm; Wt 78.7 kg
[2020-04-05] MEDS ORDERED: LACTATED RINGER'S 1000 ML IV STA (20:53)
[2020-04-05] MEDS ORDERED: LR 1,000 ML IV SCH (20:53)
[2020-04-05 21:09] LABS: HEMATOCRIT 32.2 % (36.0-47.0); HEMOGLOBIN 9.2 g/dl (12.0-15.5); MEAN CORPUSCULAR HEMOGLOBIN 23.2 pg (27.0-33.0); MEAN CORPUSCULAR HGB CONC 28.6 g/dl (32.0-36.5); MEAN CORPUSCULAR VOLUME 81.1 fl (80.0-96.0); PLATELET COUNT, AUTOMATED 202 10^3/uL (150-450); RED BLOOD COUNT 3.97 10^6/uL (4.00-5.40); WHITE BLOOD COUNT 8.3 10^3/uL (4.0-10.0)
[2020-04-05] MEDS ORDERED: OXYTOCIN 30 UNITS IN 0.9% NaCl 500ML IV BAG (J2590) As Ordered ONE (21:19)
[2020-04-05] MEDS ORDERED: OXYTOCIN DRIP 30 UNITS in IV 1 EA IV SCH (21:42)
[2020-04-05] MEDS ORDERED: MOM 30ML SUSPENSION UDC PO PRN (21:45)
[2020-04-05] MEDS ORDERED: IBUPROFEN 600MG TAB PO PRN (21:45)
[2020-04-05] MEDS ORDERED: RHOGAM 300 MCG (1500 IU) INJ (J2790) IM SCH (21:45)
[2020-04-05] MEDS ORDERED: ANUSOL HC CREAM 30GM TOP PRN (21:45)
[2020-04-05] MEDS ORDERED: IBUPROFEN 800 MG TAB PO PRN (21:45)
[2020-04-05] MEDS ORDERED: ACETAMINOPHEN TAB 650MG DOSE (2X325MG) PO PRN (21:45)
[2020-04-05] MEDS ORDERED: DOCUSATE SODIUM 100 MG CAP PO PRN (21:45)
[2020-04-05] MEDS ORDERED: MEASLES,MUMPS,RUBELLA VACCINE INJ (MMR-II) (90707) SC SCH (21:45)
[2020-04-05] MEDS ORDERED: DIBUCAINE 1% OINTMENT 30GM TOP PRN (21:45)
--- NOTE | 2020-04-05 21:54 | DNPDOC ---
[facility] Delivery Note Delivery Note DATE OF DELIVERY: 04/05/2020 PREDELIVERY DIAGNOSIS: 39+6/7 weeks' gestation and labor. POST DELIVERY DIAGNOSIS: Delivered. PROCEDURE: Spontaneous vaginal delivery. PROVIDER: Cande Wolfe CNM ANESTHESIA: None. ESTIMATED BLOOD LOSS: 350 mL. FINDINGS: 8 pound 9 ounce, 3870gm male infant, Score 8/9, no nuchal cord. DELIVERY SUMMARY: Patient is a 35-year-old 5 now para 5-0-0-5 who was admitted to labor and delivery for active labor. AROM clear fluid 2121. FD 2122. Viable male child delivered without difficulty, JEFF @ 2123. Spontaneous respirations, transitioned on maternal abdomen. Terminal meconium noted at delivery. Cord doubly clamped once pulsations ceased and cut by FOB under my direction. Apgars 8/9. Placenta ball, intact with 3v cord @ 2131. Fundus firmed with massage and premixed bag of pitocin bolus. EBL 350ml. Cervix, vagina and perineum intact. Sponge, sharp and instrument count correct. Cande Wolfe CNM Apr 05, 2020 21:54
[2020-04-05] MEDS: METHYLERGONOVINE MALEATE 0.2 MG TAB PO SCH (21:59)
--- NOTE | 2020-04-05 22:25 | HPEPDOC ---
Obstetrical History & Physical General Date of Admission Apr 05, 2020 at 20:54 History of Present Illness Chief Complaint: Contractions, term Information Provided By: Patient Age: 35 : 5 Term: 4 Pre-term: 0 Abortions: 0 Livin Care Care: Good Care Dating Final EDC: Apr 06, 2020 Final EDC by: LMP EGA at Admission: 39 (+6) Past Medical History Past Obstetrical History #1: Past Obstetrical History: Primgravida (2004) Type of Delivery: Spontaneous Vaginal Del. Sex of : Male (9#0) Complications: No Past Obstetrical History #2: Past Obstetrical History: Multigravida (2006) Type of Delivery: Spontaneous Vaginal Del. Sex of Infant: Male (7#11) Complications: No Past Obstetrical History #3: Past Obstetrical History: Multigravida (2008) Type of Delivery: Spontaneous Vaginal Del. Sex of : Male (8#14) Complications: No Past Obstetrical History #4: Past Obstetrical History: Multigravida (2018) Type of Delivery: Spontaneous Vaginal Del. Sex of : Male (9#4) Complications: Yes (preeclampsia, readmitted ) [facility] History: No pertinent history Past Medical History Medical History kidney stones, ovarian cysts, gerd, migraines Surgical History: Gallbladder, Other (gastric bypass, arthroscopic knee surgery) Family History Significant Family History: Cancer, Hypertension, Renal disease Social History Marital Status: Single Family situation: Spouse/partner home Psychosocial History: Anxiety, Depression, Other ( inpatient mental health) * Smoker: non-smoker Alcohol: Denies Drugs: denies Allergies Coded Allergies: No Known Allergies (Unverified , 01/03/15) Physical Examination Physical Examination GENERAL: Alert and oriented times three. BREAST: . ABDOMEN: Gravid and non-tender to touch. FETUS: Is vertex (VTX) by sterile vaginal examination (SVE), fetus is vertex (VTX) by Antonino. EFW 8-9# HEART RATE: Regular rate and rhythm. LUNGS: Clear to auscultation (CTA). EXTREMITIES: No edema. No clonus. Deep tendon reflexes (DTRs) + 2. Laboratory Data 24H LABS Laboratory Tests 2 04/05/20 21:00: Serology Scanned Report Hepatitis B Testing 04/05/20 21:02: Nucleated Red Blood Cells % (auto) 0.0 CBC/BMP Laboratory Tests 04/05/20 21:02 Pertinent Laboratoy Data Blood Type: O+ RBC Antibody Screen: Negative HIV: Negative Hepatitis B: Negative Hepatitis C: Negative Rapid Plasma Reagin: Nonreactive Rubella: Immune Chlamydia/Gonorrhea: Negative Group B Streptococcus: Negative Quad Screen Test: Declined Diag/Inter Therapy home glucose testing due to hx gastric bypass. Anatomy Ultrasound Ultrasound Date: Nov 08, 2019 Placenta Location: Posterior Normal Anatomy: Yes Placenta Previa: No Estimated Weight (grams): 276 (67%) Other Ultrasounds 09/21/2019 dating 10w6d fh 175 shasha 04/06/2020 12/22/2019 f/u anatomy 24w2d efw 729gm 40%, normal anatomy 02/19/2020 growth 32w4d efw 2112 40% 03/19/2020 35w2d efw 3518gm 74% Steroid Therapy Steroid Therapy: No Vaginal Examination Dilation: 8 cm Effacement: 100% Station: 0 Cervical Consistency: Soft Cervical Position: Middle Presentation: Cephalic presentation Assessment Heart Rate (FHR): 145 Variability: Moderate Accelerations: Positive Decelerations: None Tocometer Contractions: Yes Frequency: regular, every 2-5 min. Strength: palpated as strong Assessment/Plan Assessment Susan is a 35-year-old (G)5 para (P)4-0-0-4 at 39+6 weeks by 10-week ultrasound. Presents to Labor and Delivery (L&D) in active labor. She reports irregular contractions through the day, stronger, regular and more uncomfortable @ 1800. Denies LOF, bleeding. Fetus is active. 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 Diet: clear liquids. Group B Streptococcus (GBS) negative. Labs and intravenous (IV) per unit protocol. Counseled on Pitocin and induction of labor (IOL). Lactated Ringers (LR): Bolus 500 mL, then at 125 mL/hr. Delivery imminent Anticipate normal spontaneous delivery (). C-S as appropriate. Cande Wolfe CNM Apr 05, 2020 22:13
[2020-04-05] MEDS: ACETAMINOPHEN 500 MG TAB PO PRN (22:26)
[2020-04-05] MEDS ORDERED: PILL CUTTER 1 EACH XX PRN (23:45)
[2020-04-05] MEDS: FERROUS SULFATE 325MG TAB PO SCH (23:55)
[2020-04-06] MEDS: METHYLERGONOVINE MALEATE 0.2 MG TAB PO SCH ×3 (03:49→16:33)
[2020-04-06] MEDS: ACETAMINOPHEN 500 MG TAB PO PRN ×3 (03:58→20:53)
[2020-04-06 06:01] VITALS: BP 133/83
--- NOTE | 2020-04-06 07:21 | IPNPDOC ---
Text Note Date of Service The patient was seen on 04/06/20. NOTE PP#1 Feels well. Adequate pain management. Voiding VSS, afebrile, normotensive Breasts soft Fundus firm, NT, down 1 FB Lochia rubra scant without odor Perineum intact PP #1, anemia Routine care. Anticipate D/C in am VS,Fishbone, I+O VS, Fishbone, I+O Laboratory Tests 04/05/20 21:02 Vital Signs Date Time Temp Pulse Resp B/P (MAP) Pulse Ox O2 Delivery O2 Flow Rate FiO2 04/06/20 06:01 97.7 54 16 133/83 (100) 99 Room Air I&O- Last 24 Hours up to 6 AM 04/06/20 06:00 Output Total 650 ml Balance -650 ml Cande Wolfe CNM Apr 06, 2020 07:21
[2020-04-06] MEDS: SERTRALINE HCL 50 MG TAB PO SCH (08:42)
[2020-04-06] MEDS: FERROUS SULFATE 325MG TAB PO SCH ×2 (08:42→20:52)
[2020-04-06] MEDS: PRENATAL VITAMINS CHEWABLE TABLET PO SCH (08:43)
[2020-04-06 18:00] VITALS: BP 131/77
[2020-04-06] MEDS ORDERED: METHYLERGONOVINE MALEATE 0.2 MG TAB PO PRN (22:00)
[2020-04-07 06:00] VITALS: BP 111/62
[2020-04-07] MEDS: PRENATAL VITAMINS CHEWABLE TABLET PO SCH (08:20)
[2020-04-07] MEDS: FERROUS SULFATE 325MG TAB PO SCH (08:20)
[2020-04-07] MEDS: SERTRALINE HCL 50 MG TAB PO SCH (08:21)
[2020-04-07] MEDS: ACETAMINOPHEN 500 MG TAB PO PRN (08:21)
[2020-04-07] MEDS ORDERED: ACET-683 PO (08:57)
[2020-04-07] MEDS ORDERED: SERT50TA29 PO (08:57)
== END 2020-04-07 12:30 | disposition home or self-care (01) | DRG 560 ==
LOC: M LDO 20:26 → EEVIPCON 20:26 → M LDI 20:54 → M OBS 23:25
PROVIDERS: ADMIT Advanced Practice Midwife; ATTEND Advanced Practice Midwife
PROC: 10E0XZZ Delivery of Products of Conception, External Approach (ICD-10-PCS; principal; 2020-04-05)
PROC: 10907ZC Drainage of Amniotic Fluid, Therapeutic from Products of Conception, Via Natural or Artificial Opening (ICD-10-PCS; 2020-04-05)
DX: O77.0 Labor and delivery complicated by meconium in amniotic fluid (principal); Z37.0 Single live birth; Z3A.39 39 weeks gestation of pregnancy; O09.523 Supervision of elderly multigravida, third trimester; D64.9 Anemia, unspecified; O99.02 Anemia complicating childbirth

== ENCOUNTER 2020-07-09 12:07 | Emergency (ER) | payer OTHER ==
[~2020-07-09] VITALS: Ht 157.5 cm; Wt 72.7 kg
[~2020-07-09 12:07] MED LIST changes: +ACET-683 PO; -AMLO10TA5 PO; +AMLO1TAB25 PO; +SERT50TA29 PO
[2020-07-09 13:13] LABS: HEMATOCRIT 35.8 % (36.0-47.0); HEMOGLOBIN 10.8 g/dl (12.0-15.5); MEAN CORPUSCULAR HEMOGLOBIN 25.2 pg (27.0-33.0); MEAN CORPUSCULAR HGB CONC 30.2 g/dl (32.0-36.5); MEAN CORPUSCULAR VOLUME 83.4 fl (80.0-96.0); PLATELET COUNT, AUTOMATED 234 10^3/uL (150-450); RED BLOOD COUNT 4.29 10^6/uL (4.00-5.40); WHITE BLOOD COUNT 5.7 10^3/uL (4.0-10.0)
[2020-07-09 13:36] LABS: AMPHETAMINES LEVEL URINE NEGATIVE (NEGATIVE); BARBITURATES URINE NEGATIVE (NEGATIVE); BENZODIAZEPINES URINE NEGATIVE (NEGATIVE); CANNABINOIDS URINE NEGATIVE (NEGATIVE); COCAINE METABOLITE URINE NEGATIVE (NEGATIVE); METHADONE URINE NEGATIVE (NEGATIVE); OPIATES URINE NEGATIVE (NEGATIVE); PHENCYCLIDINE URINE NEGATIVE (NEGATIVE)
[2020-07-09 13:45] LABS: ACETAMINOPHEN LEVEL < 2.0 UG/ML (10.0-30.0); ALBUMIN 3.5 GM/DL (3.2-5.2); ALT/SGPT 25 U/L (12-78); BILIRUBIN,DIRECT 0.2 MG/DL (0.0-0.2); BILIRUBIN,TOTAL 0.4 MG/DL (0.2-1.0); BLOOD UREA NITROGEN 16 MG/DL (7-18); CALCIUM LEVEL 8.7 MG/DL (8.5-10.1); CARBON DIOXIDE LEVEL 21 MEQ/L (21-32); CHLORIDE LEVEL 111 MEQ/L (98-107); ETHYL ALCOHOL (ETHANOL) 0.188 % (0.000-0.010); GLOMERULAR FILTRATION RATE > 60.0 (>60); GLUCOSE, FASTING 85 MG/DL (70-100); POTASSIUM SERUM 3.7 MEQ/L (3.5-5.1); SALICYLATE LEVEL < 1.7 MG/DL (5.0-30.0); SODIUM LEVEL 142 MEQ/L (136-145); TOTAL PROTEIN 7.2 GM/DL (6.4-8.2)
[2020-07-09 13:56] LABS: HCG, SERUM QUALITATIVE NEGATIVE (NEGATIVE)
[2020-07-09 14:31] VITALS: BP 117/75
== END 2020-07-09 14:30 | disposition home or self-care (01) ==
LOC: M ED 12:07
DX: F10.120 Alcohol abuse with intoxication, uncomplicated (principal); F17.200 Nicotine dependence, unspecified, uncomplicated; Z79.899 Other long term (current) drug therapy; Z98.84 Bariatric surgery status
CPT/HCPCS: 36415; 80048; 80076; 80307; 84443; 84703; 85027; 99283; G0480

== ENCOUNTER → 2020-07-16 | Outpatient (CLI) | payer OTHER | LOC: M OUTALCOH 10:34 | PROVIDERS: ATTEND Psychiatry & Neurology Addiction Medicine | DX: F10.20 Alcohol dependence, uncomplicated (principal) ==

== ENCOUNTER 2020-07-22 08:45 | Outpatient (RCR) | payer OTHER | END 2020-08-03 | LOC: M OUTALCOH 08:45 | PROVIDERS: ATTEND Psychiatry & Neurology Addiction Medicine | DX: F10.20 Alcohol dependence, uncomplicated (principal) ==

== ENCOUNTER → 2020-08-16 | Outpatient (CLI) | payer OTHER | LOC: M OUTALCOH 08:04 | PROVIDERS: ATTEND Psychiatry & Neurology Addiction Medicine | DX: Z13.39 Encounter for screening examination for other mental health and behavioral disorders (principal); F10.20 Alcohol dependence, uncomplicated ==

== ENCOUNTER 2020-08-28 08:45 | Outpatient (RCR) | payer OTHER | END 2020-09-02 | LOC: M OUTALCOH 08:45 | PROVIDERS: ATTEND Psychiatry & Neurology Addiction Medicine | DX: F10.20 Alcohol dependence, uncomplicated (principal) ==

== ENCOUNTER → 2020-09-10 | Outpatient (REF) | payer OTHER | LOC: M SFHCPLAZ 09:48 | PROVIDERS: ATTEND Physician Assistant | DX: R35.0 Frequency of micturition (principal) ==

== ENCOUNTER → 2023-06-22 | Outpatient (CLI) | payer OTHER ==
[~2023-06-22] MED LIST changes: +ACE65ERTAB PO; +BACT800T5 PO; +DOXY-443 PO; -DOXY100C37 PO; +FLUO40CA; +GABA-1171; +HYDR-3363 PO; +IBUP80TA; +LITH45TASA; +MAALSUS19 PO; +NALT50TA4; +OMEP40CA4 PO; -OMEP40CA97 PO; +TOPI-254
[2023-06-22 16:23] LABS: HEMATOCRIT 43.5 % (36.0-47.0); HEMOGLOBIN 13.9 g/dl (12.0-15.5); MEAN CORPUSCULAR HEMOGLOBIN 29.1 pg (27.0-33.0); PLATELET COUNT, AUTOMATED 189 10^3/uL (150-450); RED BLOOD COUNT 4.78 10^6/uL (4.00-5.40); WHITE BLOOD COUNT 5.6 10^3/uL (4.0-10.0)
== END ==
LOC: MERGE 12:10 → M PLALAB 12:10
PROVIDERS: ATTEND Family Medicine
DX: D50.9 Iron deficiency anemia, unspecified (principal)

== ENCOUNTER 2024-04-20 16:50 | Emergency (ER) | payer OTHER ==
[~2024-04-20] VITALS: Ht 157.5 cm; Wt 72.7 kg
[2024-04-20] MEDS: MULTIVITAMINS/MINERALS THERAP 1 TAB PO SCH (09:00)
[~2024-04-20 16:50] MED LIST changes: +DOXY-323 PO; -DOXY-443 PO; -EFFE150C2 PO; +EFFE150C3 PO; +FLUO-365 PO; -FLUO20CA22 PO; -KLON0.5T PO; +KLON0.5T8 PO; -KLON1TAB PO; +KLON1TAB13 PO; +TOPI-21; -TOPI-254
[2024-04-20 18:06] LABS: BASO % 0.4 % (0.0-1.0); EOS # 0.1 10^3/uL (0.0-0.5); EOS % 1.1 % (0.0-3.0); HEMATOCRIT 37.3 % (36.0-47.0); HEMOGLOBIN 12.2 g/dl (12.0-15.5); LYMPH # 2.1 10^3/uL (1.5-5.0); LYMPH % 40.7 % (24.0-44.0); MEAN CORPUSCULAR HGB CONC 32.7 g/dl (32.0-36.5); MEAN CORPUSCULAR VOLUME 88.6 fl (80.0-96.0); MONO # 0.4 10^3/uL (0.0-0.8); MONO % 7.1 % (2.0-8.0); NEUTROPHILS # 2.7 10^3/uL (1.5-8.5); NEUTROPHILS % 50.7 % (36.0-66.0); PLATELET COUNT, AUTOMATED 236 10^3/uL (150-450); RED BLOOD COUNT 4.21 10^6/uL (4.00-5.40); WHITE BLOOD COUNT 5.2 10^3/uL (4.0-10.0)
[2024-04-20 18:27] LABS: AMPHETAMINES LEVEL URINE NEGATIVE (NEGATIVE); BARBITURATES URINE NEGATIVE (NEGATIVE); BENZODIAZEPINES URINE NEGATIVE (NEGATIVE); CANNABINOIDS URINE NEGATIVE (NEGATIVE); COCAINE METABOLITE URINE NEGATIVE (NEGATIVE); METHADONE URINE NEGATIVE (NEGATIVE); OPIATES URINE NEGATIVE (NEGATIVE); PHENCYCLIDINE URINE NEGATIVE (NEGATIVE)
[2024-04-20 18:56] LABS: ETHYL ALCOHOL (ETHANOL) 0.007 % (0.000-0.010); HCG, SERUM QUALITATIVE NEGATIVE (NEGATIVE)
[2024-04-20 18:58] LABS: ALBUMIN 3.3 G/DL (3.2-5.2); ALKALINE PHOSPHATASE 84 U/L (46-116); ALT/SGPT 16 U/L (7.0-40); AST/SGOT 20 U/L (<34); BILIRUBIN,DIRECT < 0.1 MG/DL (<0.4); BILIRUBIN,TOTAL 0.3 MG/DL (0.3-1.2); BLOOD UREA NITROGEN 8 MG/DL (9-23); CALCIUM LEVEL 9.7 MG/DL (8.5-10.1); CARBON DIOXIDE LEVEL 22 MMOL/L (20-31); CHLORIDE LEVEL 108 MMOL/L (98-107); CREATININE FOR GFR 0.57 MG/DL (0.55-1.30); GLOMERULAR FILTRATION RATE > 60.0 (>60); GLUCOSE, FASTING 87 MG/DL (60-100); MAGNESIUM LEVEL 1.7 MG/DL (1.8-2.4); POTASSIUM SERUM 3.8 MMOL/L (3.5-5.1); SALICYLATE LEVEL < 3.0 MG/DL (<30); SODIUM LEVEL 139 MMOL/L (136-145); TOTAL PROTEIN 6.1 G/DL (5.7-8.2)
[2024-04-20 18:59] LABS: THYROID STIMULATING HORMONE 3.203 uIU/ML (0.55-4.78)
[2024-04-20] MEDS ORDERED: LORazepam 2 MG TAB PO PRN (19:00)
[2024-04-20] MEDS: ACETAMINOPHEN 325 MG TAB PO ONE (19:13)
[2024-04-20] MEDS: NS 1,000 ML IV ONE (19:14)
[2024-04-20 19:15] VITALS: TEMP 98.3
[2024-04-20] MEDS: FOLIC ACID 1MG TAB PO SCH (20:16)
[2024-04-20] MEDS: THIAMINE 100 MG TAB PO SCH (20:16)
[2024-04-20 20:45] VITALS: O2SAT 98
[2024-04-20 20:46] VITALS: BP 136/77
== END 2024-04-20 20:51 | disposition home or self-care (01) ==
LOC: M ED 16:50
DX: S06.0X0A Concussion without loss of consciousness, initial encounter (principal); W22.8XXA Striking against or struck by other objects, initial encounter; F10.10 Alcohol abuse, uncomplicated; R00.1 Bradycardia, unspecified; J45.909 Unspecified asthma, uncomplicated; F41.9 Anxiety disorder, unspecified; K21.9 Gastro-esophageal reflux disease without esophagitis; F31.9 Bipolar disorder, unspecified; Z98.84 Bariatric surgery status; F12.10 Cannabis abuse, uncomplicated; Y92.009 Unspecified place in unspecified non-institutional (private) residence as the place of occurrence of the external cause; Y93.89 Activity, other specified; Y99.9 Unspecified external cause status

== ENCOUNTER → 2025-05-31 | Outpatient (CLI) | payer OTHER ==
[~2025-05-31] MED LIST changes: -ACE65ERTAB PO; +ACET-1593 PO; -DOXY-323 PO; +DOXY-441 PO; -FLOM0.4C39 PO; +HYDR12.510 PO; -HYDR12CA PO; +LAMO-18; -LAMO25TA4; +LITH450T17; -LITH45TASA; +TAMS-18 PO; +TOPI-257; +TOPI-257 PO; -TOPI100T9; -TOPI100T9 PO
[2025-05-31 15:53] LABS: BASO # 0.0 10^3/uL (0.0-0.2); BASO % 0.8 % (0.0-1.0); EOS # 0.1 10^3/uL (0.0-0.5); EOS % 2.9 % (0.0-3.0); LYMPH # 2.2 10^3/uL (1.5-5.0); LYMPH % 44.8 % (24.0-44.0); MONO # 0.3 10^3/uL (0.0-0.8); MONO % 6.9 % (2.0-8.0); NEUTROPHILS # 2.2 10^3/uL (1.5-8.5); NEUTROPHILS % 44.6 % (36.0-66.0); PLATELET COUNT, AUTOMATED 297 10^3/uL (150-450)
[2025-05-31 16:18] LABS: IRON (FE) 24 UG/DL (50-170); PERCENT SATURATION 5.8 % (13.2-45.0)
[2025-05-31 16:19] LABS: ALT/SGPT 22 U/L (7.0-40); AST/SGOT 28 U/L (<34); CALCIUM LEVEL 11.1 MG/DL (8.5-10.1); CARBON DIOXIDE LEVEL 28 MMOL/L (20-31); CHLORIDE LEVEL 104 MMOL/L (98-107); CREATININE FOR GFR 0.74 MG/DL (0.55-1.30); GLOMERULAR FILTRATION RATE > 90.0 (>58); POTASSIUM SERUM 4.3 MMOL/L (3.5-5.1); SODIUM LEVEL 140 MMOL/L (136-145); TOTAL 25(OH) VITAMIN D 17.7 NG/ML (20.0-100.0)
[2025-05-31 16:20] LABS: VITAMIN B12 LEVEL 492 PG/ML (211-911)
== END ==
LOC: M LAB 15:01
DX: R00.2 Palpitations (principal); D50.9 Iron deficiency anemia, unspecified; E55.9 Vitamin D deficiency, unspecified

== ENCOUNTER 2025-06-19 15:49 | Outpatient (CLI) | payer OTHER ==
[~2025-06-19] VITALS: Ht 160 cm; Wt 76.2 kg
[~2025-06-19 15:49] MED LIST changes: +ALBUTEROL SULFATE 2.5 MG/0.5 ML INH CONCENTRATE NEB SOLN INH PRN; +EPINEPHrine INJ 1 MG/ML 1ML AMP IM PRN; +diphenhydrAMINE 50 MG/ML VIAL IV PRN
[2025-06-19] MEDS: FERRIC CARBOXYMALTOSE 750 MG (VIAL MATE) IN 100ML NS IV ONE (16:09)
== END 2025-06-19 16:35 | disposition home or self-care (01) ==
LOC: M INFU 15:49
DX: D50.9 Iron deficiency anemia, unspecified (principal)
CPT/HCPCS: 96365; J1439